=== PATIENT | female | born 1965 | race Caucasian/White ===

== ENCOUNTER 2016-04-06 15:45 | Emergency (ER) | payer OTHER ==
--- NOTE | 2016-04-06 16:42 | EDDOCDS ---
Nurse's Notes [facility] Name: Amberly De Souza Age: 50 yrs Sex: Female : 1965 Arrival Date: 04/06/2016 Time: 15:45 Bed Triage 3 Private MD: Melani DAVIDSON Diagnosis: Abscess of external ear Presentation: 04/06 15:51 Presenting complaint: Patient states: Left outer ear swelling and pain began four days mlb1 ago. Adult Sepsis Screening: The patient does not have new or worsening altered mentation. Patient's respiratory rate is less than 22. Systolic blood pressure is greater than 100. Patient has a qSOFA score of 0- Negative Sepsis Screen. Suicide/Homicide risk assessment- the patient denies having any suicidal and/or homicidal ideations and does not present with any other emotional, behavioral or mental health complaints. Status: Patient is not a extension service specialist in charge or dependent. Transition of care: patient was not received from another setting of care. 15:51 Acuity: HELLEN Level 4 mlb1 15:51 Method Of Arrival: Walkin/Carried/Asstd mlb1 Triage Assessment: 15:52 General: Appears in no apparent distress, Behavior is appropriate for age, cooperative. mlb1 Pain: Location: left ear Pain currently is 5 out of 10 on a pain scale. HIV screening NA for this visit Offered previously. 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 none - PMHx: GERD; - PSHx: Tonsillectomy; Cesearean Section; Laparoscopy; - Social history: Smoking status: Patient states was never smoker of tobacco. No barriers to communication noted, The patient speaks fluent Slovenian, Speaks appropriately for age. - Family history: Not pertinent. - : The pt / caregiver states he / she is not on anticoagulants. Home medication list is obtained from the patient. - Exposure Risk Screening:: None identified. Screenin:40 Screening information is obtained from the patient. Fall risk: No risks identified. mlb1 Assistance ADL's: requires no assistance with activities of daily living. Abuse/DV Screen: The patient / caregiver reports he/she is: not in a situation that causes fear, pain or injury. Nutritional screening: No deficits noted. Advance Directives: Currently, there is no health care proxy. home support is adequate. Assessment: 16:40 General: Appears in no apparent distress, comfortable, Behavior is appropriate for age, mlb1 cooperative. Pain: Location: left ear Pain currently is 5 out of 10 on a pain scale. EENT: Respiratory: No deficits noted. Derm: Skin is pink, warm & dry. normal. Vital Signs: 15:47 BP 148 / 85; Pulse 90; Resp 16; Temp 97.8(O); Pulse Ox 100% ; Weight 116.12 kg (M); cmb Height 5 ft. 5 in. (165.10 cm); Pain 4/10; 15:47 Body Mass Index 42.60 (116.12 kg, 165.10 cm) cmb Vitals: 15:47 Log In Time: April 06, 2016 at 15:45. cmb ED Course: 15:47 Patient visited by Elle Lewis. cmb 15:47 [facility] is Private Physician. cmb 15:47 Patient moved to Waiting cmb 15:48 Patient moved to Pre RCE cmb 15:52 Triage Initiated mlb1 15:54 Patient visited by Randall Mane, JOSE. mlb1 15:54 Patient moved to Triage 3 mlb1 16:07 [facility]. dk1 16:07 Nam Perez MD is Attending Physician. dk1 16:07 Patient visited by Gama Delacruz PA-C. dk1 16:41 No IV's were initiated during this patient's visit. No procedures done that require mlb1 assistance. 16:42 Patient visited by Randall Mane RN. mlb1 16:42 The patient / caregiver is instructed regarding the plan of care and ED course. mlb1 Order Results: There are currently no results for this order. Outcome: 16:23 Discharge ordered by Provider. dk1 16:41 Discharge Assessment: patient administered narcotics - no. The following High Risk mlb1 Discharge criteria are identified: None. Discharged to home ambulatory. Condition: good. Discharge instructions given to patient, Instructed on discharge instructions, follow up and referral plans. medication usage, Demonstrated understanding of instructions, medications, Pt was receptive of discharge instructions/ teaching. Prescriptions given X 3. No special radiology studies were completed. Property sent home with patient. 16:42 Patient left the ED. mlb1 Signatures: Randall Mane, RN RN mlb1 Gama Delacruz, JOSE R PAGilles roa1 Elle Lewis MTDD
--- NOTE | 2016-04-06 16:42 | EDDOCDS ---
Physician Documentation [facility] Name: Amberly De Souza Age: 50 yrs Sex: Female : 1965 Arrival Date: 04/06/2016 Time: 15:45 Bed Triage 3 Private MD: Melani DAVIDSON Disposition: 04/06/16 16:23 Discharged to Home/Self Care. Impression: Abscess of external ear. - Condition is Stable. - Discharge Instructions: Abscess. - Prescriptions for Bactroban 2 % Topical Ointment - Apply to affected area 1 application by TOPICAL route every 12 hours; 30 gram. Doxycycline Hyclate 100 mg Oral Tablet - take 1 tablet by ORAL route every 12 hours; 20 tablet. Tylenol 325 mg Oral Tablet - take 2 tablet by ORAL route every 6 hours as needed; 1 bottle. - Medication Reconciliation, Local Pharmacy Hours form. - Follow up: Emergency Department; When: 1 - 2 days; Reason: Recheck today's complaints. - Problem is new. - Symptoms are unchanged. Historical: - Allergies: Morphine; Codeine Sulfate; PENICILLINS; - Home Meds: 1. none - PMHx: GERD; - PSHx: Tonsillectomy; Cesearean Section; Laparoscopy; - Social history: Smoking status: Patient states was never smoker of tobacco. No barriers to communication noted, The patient speaks fluent Kuwaiti, Speaks appropriately for age. - Family history: Not pertinent. - : The pt / caregiver states he / she is not on anticoagulants. Home medication list is obtained from the patient. - Exposure Risk Screening:: None identified. 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 5 in. (165.10 cm); Pain 4/10; 15:47 Body Mass Index 42.60 (116.12 kg, 165.10 cm) cmb Signatures: Randall Mane RN RN mlb1 Gama Delacruz PA-C PA-C dk1 MTDD
--- NOTE | 2016-04-08 17:42 | EDDOCDS ---
Nurse's Notes [facility] Name: Amberly De Souza Age: 50 yrs Sex: Female : 1965 Arrival Date: 04/06/2016 Time: 15:45 Bed Triage 3 Private MD: Melani DAVIDSON Diagnosis: Abscess of external ear Presentation: 04/06 15:51 Presenting complaint: Patient states: Left outer ear swelling and pain began four days mlb1 ago. Adult Sepsis Screening: The patient does not have new or worsening altered mentation. Patient's respiratory rate is less than 22. Systolic blood pressure is greater than 100. Patient has a qSOFA score of 0- Negative Sepsis Screen. Suicide/Homicide risk assessment- the patient denies having any suicidal and/or homicidal ideations and does not present with any other emotional, behavioral or mental health complaints. Status: Patient is not a legal service specialist or dependent. Transition of care: patient was not received from another setting of care. 15:51 Acuity: HELLEN Level 4 mlb1 15:51 Method Of Arrival: Walkin/Carried/Asstd mlb1 Triage Assessment: 15:52 General: Appears in no apparent distress, Behavior is appropriate for age, cooperative. mlb1 Pain: Location: left ear Pain currently is 5 out of 10 on a pain scale. HIV screening NA for this visit Offered previously. 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 none - PMHx: GERD; - PSHx: Tonsillectomy; Cesearean Section; Laparoscopy; - Social history: Smoking status: Patient states was never smoker of tobacco. No barriers to communication noted, The patient speaks fluent Icelandic, Speaks appropriately for age. - Family history: Not pertinent. - : The pt / caregiver states he / she is not on anticoagulants. Home medication list is obtained from the patient. - Exposure Risk Screening:: None identified. Screenin:40 Screening information is obtained from the patient. Fall risk: No risks identified. mlb1 Assistance ADL's: requires no assistance with activities of daily living. Abuse/DV Screen: The patient / caregiver reports he/she is: not in a situation that causes fear, pain or injury. Nutritional screening: No deficits noted. Advance Directives: Currently, there is no health care proxy. home support is adequate. Assessment: 16:40 General: Appears in no apparent distress, comfortable, Behavior is appropriate for age, mlb1 cooperative. Pain: Location: left ear Pain currently is 5 out of 10 on a pain scale. EENT: Respiratory: No deficits noted. Derm: Skin is pink, warm & dry. normal. Vital Signs: 15:47 BP 148 / 85; Pulse 90; Resp 16; Temp 97.8(O); Pulse Ox 100% ; Weight 116.12 kg (M); cmb Height 5 ft. 5 in. (165.10 cm); Pain 4/10; 15:47 Body Mass Index 42.60 (116.12 kg, 165.10 cm) cmb Vitals: 15:47 Log In Time: April 06, 2016 at 15:45. cmb ED Course: 15:47 Patient visited by Elle Lewis. cmb 15:47 [facility] is Private Physician. cmb 15:47 Patient moved to Waiting cmb 15:48 Patient moved to Pre RCE cmb 15:52 Triage Initiated mlb1 15:54 Patient visited by Randall Mane, JOSE. mlb1 15:54 Patient moved to Triage 3 mlb1 16:07 G[facility] Delacruz [facility]-C [facility]. dk1 16:07 Nam Perez MD is Attending Physician. dk1 16:07 Patient visited by Gama Delacruz PA-C. dk1 16:41 No IV's were initiated during this patient's visit. No procedures done that require mlb1 assistance. 16:42 Patient visited by Randall Mane RN. mlb1 16:42 The patient / caregiver is instructed regarding the plan of care and ED course. [facility] 04/07 08:16 T-Sheet-- Draft Copy was scanned into Qianda[employer] and attached to record. [facility] Order Results: There are currently no results for this order. Outcome: 04/06 16:23 Discharge ordered by Provider. dk1 16:41 Discharge Assessment: patient administered narcotics - no. The following High Risk mlb1 Discharge criteria are identified: None. Discharged to home ambulatory. Condition: good. Discharge instructions given to patient, Instructed on discharge instructions, follow up and referral plans. medication usage, Demonstrated understanding of instructions, medications, Pt was receptive of discharge instructions/ teaching. Prescriptions given X 3. No special radiology studies were completed. Property sent home with patient. 16:42 Patient left the ED. mlb1 Signatures: Randall Mane RN RN mlb1 Gama Delacruz PA-C PA-C dk1 [place], [place] cmb Hoffert, Vi segura Chart Complete MTDD
--- NOTE | 2016-04-08 17:42 | EDDOCDS ---
Physician Documentation [facility] Name: Amberly De Souza Age: 50 yrs Sex: Female : 1965 Arrival Date: 04/06/2016 Time: 15:45 Bed Triage 3 Private MD: Melani DAVIDSON Disposition: 04/06/16 16:23 Discharged to Home/Self Care. Impression: Abscess of external ear. - Condition is Stable. - Discharge Instructions: Abscess. - Prescriptions for Bactroban 2 % Topical Ointment - Apply to affected area 1 application by TOPICAL route every 12 hours; 30 gram. Doxycycline Hyclate 100 mg Oral Tablet - take 1 tablet by ORAL route every 12 hours; 20 tablet. Tylenol 325 mg Oral Tablet - take 2 tablet by ORAL route every 6 hours as needed; 1 bottle. - Medication Reconciliation, Local Pharmacy Hours form. - Follow up: Emergency Department; When: 1 - 2 days; Reason: Recheck today's complaints. - Problem is new. - Symptoms are unchanged. Historical: - Allergies: Morphine; Codeine Sulfate; PENICILLINS; - Home Meds: 1. none - PMHx: GERD; - PSHx: Tonsillectomy; Cesearean Section; Laparoscopy; - Social history: Smoking status: Patient states was never smoker of tobacco. No barriers to communication noted, The patient speaks fluent Hungarian, Speaks appropriately for age. - Family history: Not pertinent. - : The pt / caregiver states he / she is not on anticoagulants. Home medication list is obtained from the patient. - Exposure Risk Screening:: None identified. 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 5 in. (165.10 cm); Pain 4/10; 15:47 Body Mass Index 42.60 (116.12 kg, 165.10 cm) cmb MDM: 04/07 08:16 T-Sheet-- Draft Copy was scanned into [employer] and attached to record. [facility] Signatures: Randall Mane RN RN mlb1 Gama Delacruz PA-C PA-C dk1 Hoffert, Sarah se The chart was reviewed and I authenticate all verbal orders and agree with the evaluation and treatment provided.Attachments: 08:16 T-Sheet-- Draft Copy imelda Chart Complete MTDD
--- NOTE | 2016-04-08 17:42 | EDDOCDS ---
Physician Documentation [facility] Name: Amberly De Souza Age: 50 yrs Sex: Female : 1965 Arrival Date: 04/06/2016 Time: 15:45 Bed Triage 3 Private MD: Melani DAVIDSON Disposition: 04/06/16 16:23 Discharged to Home/Self Care. Impression: Abscess of external ear. - Condition is Stable. - Discharge Instructions: Abscess. - Prescriptions for Bactroban 2 % Topical Ointment - Apply to affected area 1 application by TOPICAL route every 12 hours; 30 gram. Doxycycline Hyclate 100 mg Oral Tablet - take 1 tablet by ORAL route every 12 hours; 20 tablet. Tylenol 325 mg Oral Tablet - take 2 tablet by ORAL route every 6 hours as needed; 1 bottle. - Medication Reconciliation, Local Pharmacy Hours form. - Follow up: Emergency Department; When: 1 - 2 days; Reason: Recheck today's complaints. - Problem is new. - Symptoms are unchanged. Historical: - Allergies: Morphine; Codeine Sulfate; PENICILLINS; - Home Meds: 1. none - PMHx: GERD; - PSHx: Tonsillectomy; Cesearean Section; Laparoscopy; - Social history: Smoking status: Patient states was never smoker of tobacco. No barriers to communication noted, The patient speaks fluent Palauan, Speaks appropriately for age. - Family history: Not pertinent. - : The pt / caregiver states he / she is not on anticoagulants. Home medication list is obtained from the patient. - Exposure Risk Screening:: None identified. 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 5 in. (165.10 cm); Pain 4/10; 15:47 Body Mass Index 42.60 (116.12 kg, 165.10 cm) cmb MDM: 04/07 08:16 T-Sheet-- Draft Copy was scanned into [employer] and attached to record. [facility] Signatures: Randall Mane RN RN mlb1 Gama Delacruz PA-C PA-C dk1 Hoffert, Sarah se The chart was reviewed and I authenticate all verbal orders and agree with the evaluation and treatment provided.Attachments: 08:16 T-Sheet-- Draft Copy imelda Chart Complete MTDD
== END 2016-04-06 16:42 | disposition home or self-care (01) ==
LOC: M ED 15:45
DX: H60.02 Abscess of left external ear (principal); K21.9 Gastro-esophageal reflux disease without esophagitis; Z88.5 Allergy status to narcotic agent; Z88.0 Allergy status to penicillin

== ENCOUNTER 2016-10-16 03:48 | Emergency (ER) | payer OTHER ==
[~2016-10-16] VITALS: Ht 165.1 cm; Wt 111.0 kg
[2016-10-16] MEDS ORDERED: IBUP-1114 PO (03:58)
[2016-10-16] MEDS ORDERED: TUMS500C PO (03:58)
[2016-10-16] MEDS ORDERED: NAPROXEN 250 MG TAB PO ONE (05:30)
[2016-10-16] MEDS ORDERED: NAPR500T3 PO (05:32)
[2016-10-16 05:37] VITALS: BP 114/64
[2016-12-07] MEDS ORDERED: BACT800T5 PO (08:53)
[2016-12-07] MEDS ORDERED: MUPI2OI EXT (08:53)
== END 2016-10-16 05:40 | disposition home or self-care (01) ==
LOC: M ED 03:48
DX: M25.562 Pain in left knee (principal); K21.9 Gastro-esophageal reflux disease without esophagitis; Z88.5 Allergy status to narcotic agent; Z88.0 Allergy status to penicillin

== ENCOUNTER 2016-12-08 06:45 | Emergency (ER) | payer OTHER ==
[~2016-12-08] VITALS: Ht 165.1 cm; Wt 112.7 kg
[~2016-12-08 06:45] MED LIST: BACT800T5 PO; IBUP-1114 PO; MUPI2OI EXT; NAPR500T3 PO; TUMS500C PO
[2016-12-08] MEDS ORDERED: ACETAMINOPHEN TAB 650MG DOSE (2X325MG) PO ONE (07:15)
--- NOTE | 2016-12-08 07:23 | ED PDOC ---
Post-Departure Follow-Up Patient was seen yesterday for erythematous, tender area to the sacrum. Prescribed Bactrim DS and mupirocin ointment. Patient returns today stating that she was running a low grade temp this am of 99.3. States that she took two doses of Bactrim DS yesterday and one 200mg Advil at 6am. States that the area does not look worse, but thought she should return because of the low grade fever. Denies drainage from the area. Patient reports that she has used the mupirocin, but she also applied a warm compress to the area right after the ointment so it may have been wiped away. Denies history of abscesses in the past. No difficulty having a bowl movement. SANDRA MARK PA-C Dec 08, 2016 07:23
[2016-12-08 08:34] VITALS: BP 127/74
--- NOTE | 2016-12-08 14:31 | REP ---
Soft-tissue ultrasound in the sacral region. assess for abscess. Findings: Scanning over the red swollen area demonstrates a complex hypoechoic area casting some enhanced through transmission measuring 1.8 x 0.9 x 1.0 cm. No observable skin tract. This is consistent with a developing abscess. There is fairly superficial, 5 mm from the overlying skin. Signed by Live Mcgovern MD 12/08/2016 08:29 A
== END 2016-12-08 08:47 | disposition home or self-care (01) ==
LOC: M ED 06:45
DX: L03.317 Cellulitis of buttock (principal); Z79.899 Other long term (current) drug therapy; Z88.5 Allergy status to narcotic agent; Z88.0 Allergy status to penicillin

== ENCOUNTER 2018-04-23 23:18 | Emergency (ER) | payer OTHER ==
[~2018-04-23] VITALS: Ht 165.1 cm; Wt 127.5 kg
[~2018-04-23 23:18] MED LIST changes: +NAPR-885 PO; -NAPR500T3 PO
[2018-04-24 01:59] LABS: BASO % 0.4 % (0.0-1.0); EOS # 0.2 10^3/uL (0.0-0.50); EOS % 2.2 % (0.0-3.0); HEMOGLOBIN 13.1 g/dl (12.0-15.5); LYMPH # 1.9 10^3/uL (1.5-4.5); LYMPH % 22.7 % (24.0-44.0); MEAN CORPUSCULAR HEMOGLOBIN 27.8 pg (27.0-33.0); MEAN CORPUSCULAR HGB CONC 32.8 g/dl (32.0-36.5); MEAN CORPUSCULAR VOLUME 84.7 fl (80.0-96.0); MONO # 0.6 10^3/uL (0.0-0.8); MONO % 6.9 % (0.0-5.0); NEUTROPHILS # 5.8 10^3/uL (1.8-7.7); NEUTROPHILS % 67.4 % (36.0-66.0); PLATELET COUNT, AUTOMATED 302 10^3/uL (150-450); RED BLOOD COUNT 4.72 10^6/uL (4.00-5.40); WHITE BLOOD COUNT 8.6 10^3/uL (4.0-10.0)
--- NOTE | 2018-04-24 02:29 | REP ---
Clinical: Dizziness . Comparison: None . Technique: PA and lateral. Findings: The mediastinum and cardiac silhouette are normal. The lung mendoza are clear and without acute consolidation, effusion, or pneumothorax. The skeletal structures are intact and normal. Impression: 1. No acute cardiopulmonary process. Electronically Signed by Jaquan Carranza MD 04/24/2018 02:22 A
[2018-04-24 02:32] LABS: BLOOD UREA NITROGEN 22 MG/DL (7-18); CALCIUM LEVEL 8.3 MG/DL (8.5-10.1); CARBON DIOXIDE LEVEL 31 MEQ/L (21-32); CHLORIDE LEVEL 108 MEQ/L (98-107); CK-MB VALUE MASS < 1.0 NG/ML (<3.6); CPK CREATINE PHOSPHOKINASE 143 U/L (26-192); CREATININE FOR GFR 0.83 MG/DL (0.55-1.30); FREE T4 0.81 NG/DL (0.76-1.46); GLOMERULAR FILTRATION RATE > 60.0 (>51); GLUCOSE, FASTING 100 MG/DL (70-100); MAGNESIUM LEVEL 2.1 MG/DL (1.8-2.4); POTASSIUM SERUM 4.2 MEQ/L (3.5-5.1); SODIUM LEVEL 143 MEQ/L (136-145); TROPONIN I < 0.02 NG/ML (< 0.10)
[2018-04-24 03:10] VITALS: BP 140/92
--- NOTE | 2018-04-24 20:29 | ECGEPIP ---
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
== END 2018-04-24 03:11 | disposition home or self-care (01) ==
LOC: M ED 23:18
DX: R42 Dizziness and giddiness (principal); K21.9 Gastro-esophageal reflux disease without esophagitis; M19.90 Unspecified osteoarthritis, unspecified site; Z88.5 Allergy status to narcotic agent; Z88.0 Allergy status to penicillin; Z79.899 Other long term (current) drug therapy

== ENCOUNTER → 2019-04-17 | Outpatient (REF) | payer OTHER ==
[2019-04-17 21:53] LABS: APPEARANCE, URINE CLOUDY (CLEAR); BACTERIA, URINE AUTO 1+ (NEGATIVE); BILIRUBIN, URINE AUTO NEGATIVE (NEGATIVE); BLOOD, URINE BLOOD 3+ (NEGATIVE); COLOR, URINE YELLOW (YELLOW); GLUCOSE, URINE (UA) AUTO NEGATIVE (NEGATIVE); KETONE, URINE AUTO NEGATIVE (NEGATIVE); LEUKOCYTE ESTERASE, URINE AUTO NEGATIVE (NEGATIVE); NITRITE, URINE AUTO NEGATIVE (NEGATIVE); PROTEIN, URINE AUTO NEGATIVE (NEGATIVE); RBC, URINE AUTO 13 /HPF (0-3); SPECIFIC GRAVITY URINE AUTO 1.018 (1.002-1.035); SQUAMOUS EPITHELIAL CELL UR AU 2 /HPF (0-6); UROBILINOGEN, URINE AUTO 0.2 mg/dL (0.0-2.0); WBC, URINE AUTO 2 /HPF (0-3)
== END ==
LOC: M LAB REF 21:38
PROVIDERS: ATTEND Physician Assistant Medical
DX: R31.9 Hematuria, unspecified (principal)

== ENCOUNTER → 2019-09-20 | Outpatient (REF) | payer OTHER | LOC: M LAB REF 08:44 | PROVIDERS: ATTEND Physician Assistant Medical | DX: Z11.59 Encounter for screening for other viral diseases (principal) ==

== ENCOUNTER → 2020-01-18 | Outpatient (CLI) | payer SELFPAY | LOC: M LABSMTC 14:25 | PROVIDERS: ATTEND Pediatrics | DX: Z11.59 Encounter for screening for other viral diseases (principal) ==

== ENCOUNTER → 2020-09-06 | Outpatient (CLI) | payer OTHER ==
[2020-09-06 18:13] LABS: HEMATOCRIT 39.9 % (36.0-47.0); MEAN CORPUSCULAR HEMOGLOBIN 27.9 pg (27.0-33.0); MEAN CORPUSCULAR HGB CONC 32.6 g/dl (32.0-36.5); MEAN CORPUSCULAR VOLUME 85.6 fl (80.0-96.0); PLATELET COUNT, AUTOMATED 327 10^3/uL (150-450); RED BLOOD COUNT 4.66 10^6/uL (4.00-5.40); WHITE BLOOD COUNT 7.3 10^3/uL (4.0-10.0)
[2020-09-06 18:37] LABS: ALBUMIN 3.5 GM/DL (3.2-5.2); ALT/SGPT 33 U/L (12-78); AMYLASE 44 U/L (25-115); BILIRUBIN,TOTAL 0.2 MG/DL (0.2-1.0); BLOOD UREA NITROGEN 14 MG/DL (7-18); CALCIUM LEVEL 8.8 MG/DL (8.5-10.1); CARBON DIOXIDE LEVEL 34 MEQ/L (21-32); CHLORIDE LEVEL 104 MEQ/L (98-107); CREATININE FOR GFR 0.72 MG/DL (0.55-1.30); GLOMERULAR FILTRATION RATE > 60.0 (>51); GLUCOSE, FASTING 87 MG/DL (70-100); LIPASE 104 U/L (73-393); POTASSIUM SERUM 4.2 MEQ/L (3.5-5.1); SODIUM LEVEL 139 MEQ/L (136-145); TOTAL PROTEIN 6.6 GM/DL (6.4-8.2)
[2020-09-06 19:28] LABS: % LABILE ALKALINE PHOSPHATASE 44.19 %; LABILE ALKPHOS 19 U/L; STABLE ALKPHOS 24 U/L
== END ==
LOC: M LAB 17:01
PROVIDERS: ATTEND Family Medicine
DX: K80.80 Other cholelithiasis without obstruction (principal)

== ENCOUNTER → 2020-09-07 | Outpatient (CLI) | payer OTHER ==
--- NOTE | 2020-09-11 15:13 | REP ---
INDICATION: SE SCR MAMMO. COMPARISON: Multiple the latest 11/23/2014. TECHNIQUE: Digital screening mammography was carried out bilaterally in the CC and MLO projections using both 2D and 3D modalities and compared to the prior exams. By history, the patient has no complaints of a palpable breast abnormality or other significant breast complaints. There are no prior DBT images to review. FINDINGS: The breasts are unchanged in size and shape. Stable benign calcifications are seen bilaterally. In the upper outer quadrant of the left breast there is a potential neno asymmetric density with possible internal architectural distortion. There is no skin thickening or nipple retraction. No other suspicious features are seen in either breast. IMPRESSION: BIRADS/ACR category 0 mammogram. Potential left breast finding as described above and for which diagnostic digital spot compression views are recommended in the CC and MLO projections. The spot compression views should be obtained using DBT technique. Ultrasonography might also be indicated. This patient's Tyrer-Cuzick lifetime breast cancer risk assessment score is 9.1%. This mammogram was interpreted with the aid of an FDA-approved computer-aided detection system. The patient states she had a clinical breast exam in June 2020. The patient letter being requested is M0 RECOMMENDATION: As above <Electronically signed by Brayan Dudley > 09/11/20 [id number]
== END ==
LOC: M WHC 12:17
PROVIDERS: ATTEND Family Medicine
DX: Z12.31 Encounter for screening mammogram for malignant neoplasm of breast (principal)

== ENCOUNTER → 2020-09-22 | Outpatient (CLI) | payer OTHER ==
--- NOTE | 2020-09-22 16:24 | REP ---
INDICATION: LEFT BREAST ADD VIEWS. COMPARISON: Comparison mammography is from September 07, 2020, November 23, 2014, and May 17, 2011. TECHNIQUE: Focal spot-compression CC, mL, and MLO views were obtained with 3D tomography. Targeted left breast sonography is carried. This mammogram was interpreted with the aid of an FDA-approved computer-aided detection system. FINDINGS: Heterogeneously dense fibroglandular tissue is seen. Focal spot compression and tomographic views confirm the presence of a focal area of architectural distortion in the upper-outer quadrant of the left breast. There is associated soft tissue density less than 1 cm in diameter. No microcalcification is seen. There is some spiculation. Mammographic findings are suspicious. The Volpara volumetric breast density pattern is C. Targeted ultrasound: Targeted left breast sonography is performed. Heterogeneous fibroglandular background echotexture is seen. In the 2 o'clock position, 10 cm from the nipple, there is a 1.0 x 1.0 x 1.7 cm hypoechoic nodule with irregular spiculated borders. This is felt to correspond with the mammographic opacity. It has high shear wave elastography number, 91 K PA, and is considered suspicious. IMPRESSION: BIRADS/ACR category 4 suspicious left breast mammographic and sonographic findings. This patient's Tyrer-Cuzick lifetime breast cancer risk assessment score is 9.1%. RECOMMENDATION: Ultrasound-guided needle biopsy of the hypoechoic lesion in the left breast with clip placement and post marker clip placement left breast mammography recommended.. The patient letter being requested is M4 dense. <Electronically signed by Mo Mcgovern > 09/22/20 [id number]
== END ==
LOC: M WHC 14:49
PROVIDERS: ATTEND Family Medicine
DX: N63.20 Unspecified lump in the left breast, unspecified quadrant (principal)
CPT/HCPCS: 76642; 77065; G0279

== ENCOUNTER → 2020-10-18 | Outpatient (CLI) | payer OTHER ==
[~2020-10-18] MED LIST changes: +VITMTA PO
[2020-10-18 15:26] VITALS: BP 130/74
--- NOTE | 2020-10-21 23:21 | ROOPDOC ---
[facility] Report Of Operation Report of Operation DATE OF PROCEDURE: 10/18/20 DIAGNOSIS: left breast suspicious lesion PROCEDURE: ultrasound guided biopsy of the left breast suspicious lesion with clip placement SURGEON: Caryn Johnston BLOOD LOSS: minimal COMPLICATIONS: none Lidocaine 1% LOT [id number] Expiration 04/2024 Sodium Bicarbonate 8.4% LOT [id number] Expiration 03/2021 Hydromark clip LOT [id number] Expiration 01/2023 SHAPE: 4 Bx device: BARD [id number] x10 cm LOT [id number] Expiration 07/2023 Informed consent was obtained. The most common risk and possible complications including bleeding, hematoma, bruising, infection, injury to surrounding structures were explained to the patient and the patient expressed understanding. Patient was placed on the bed in the supine position. Appropriate time out was done stating patients name, date of , and the procedure to be performed. The left breast was prepped and draped in the usual fashion. The ultrasound was used to confirm the location of the lesion in the left breast at 2:00 8 centimeters from the nipple. Plain Lidocaine 1% and 8.4% sodium bicarbonate 10:1 mix was used to anesthetize the skin, the biopsy site and tissues along the anticipated biopsy tract. Small skin incision was made with blade number 11. BARD Marquee 14G cannula with introducer ([id number]) was inserted through the incision and advanced under the ultrasound guidance to position immediately adjacent to the lesion. Next, the introducer was removed and BARD Marquee 14G biopsy device was places in the cannula. Pre-biopsy imaging, and post-biopsy imaging were captured. Five good core biopsies were taken at various levels of the lesion. Specimen was placed in formaldehyde, labeled with appropriate biopsy site and patients name, and sent to pathology for evaluation. Next, the biopsy device was withdrawn and a clip introducer was inserted into the biopsy site via the cannula. SHAPE 4 Hydromark clip was deployed under sonographic guidance. Post-clip placement image was captured. Manual pressure over the biopsy cavity and tract was held after the clip introducer was withdrawn. No bleeding was noted upon removal of the pressure. Post-biopsy mammogram of the left breast was obtained and showed clip in expected position. Postprocedural dressing was placed. Patient tolerated procedure well. Discharge instructions were discussed with the patient and the patient expressed understanding. CARYN JOHNSTON DO Oct 21, 2020 23:21
== END ==
LOC: M WHCPRO 11:17
PROVIDERS: ATTEND Surgery
DX: C50.212 Malignant neoplasm of upper-inner quadrant of left female breast (principal); N63.22 Unspecified lump in the left breast, upper inner quadrant
CPT/HCPCS: 19083; 77065; 88305; G0279

== ENCOUNTER → 2020-10-25 | Outpatient (CLI) | payer OTHER ==
[2020-10-25 15:47] LABS: BLOOD UREA NITROGEN 14 MG/DL (7-18); CALCIUM LEVEL 8.9 MG/DL (8.5-10.1); CARBON DIOXIDE LEVEL 28 MEQ/L (21-32); CHLORIDE LEVEL 106 MEQ/L (98-107); CREATININE FOR GFR 0.69 MG/DL (0.55-1.30); GLOMERULAR FILTRATION RATE > 60.0 (>51); GLUCOSE, FASTING 106 MG/DL (70-100); POTASSIUM SERUM 3.9 MEQ/L (3.5-5.1); SODIUM LEVEL 139 MEQ/L (136-145)
== END ==
LOC: M PLALAB 13:00
PROVIDERS: ATTEND Surgery
DX: C50.919 Malignant neoplasm of unspecified site of unspecified female breast (principal)

== ENCOUNTER → 2020-11-03 | Outpatient (CLI) | payer OTHER ==
[~2020-11-03] MED LIST changes: +PROHANCE 279.3MG/ML 15ML VIAL As Ordered ONE; +PROHANCE 279.3MG/ML 5ML VIAL As Ordered ONE
--- NOTE | 2020-11-06 08:04 | REP ---
INDICATION: INVASIVE DUCTAL CARCINOMA OR LT BREAST. COMPARISON: Comparison is made with mammography from September 07, 2020 and September 22, 2020 as well as sonography from September 22, 2020. Patient is a post ultrasound-guided needle biopsy of the left breast on October 18, 2020. TECHNIQUE: Three [facility] MRI imaging was performed with a dedicated breast coil. Axial, coronal, and sagittal T1 and T2 weighted scans were obtained with and without fat saturation in the usual fashion. The study includes dynamically acquired post gadolinium-enhanced imaging with image subtraction. Maximum intensity projection and multi planar reformation imaging is included as well. This study is interpreted with the aid of [employer], an FDA approved computer aided detection (CAD) software program, on a dedicated breast MRI workstation. The gadolinium enhancement dose is 20 mL of intravenous ProHance. FINDINGS: There is a moderate amount of fibroglandular tissue bilaterally corresponding with the mammographic pattern. There is amoderate nodular pattern of background parenchymal enhancement. In the left breast at the 1 o'clock position middle to posterior 3rd, there is a spiculated heterogeneously enhancing lesion adjacent to a HydroMARK clip device. This corresponds to the biopsy proven malignancy. Its dimensions are by MRI are somewhat larger than by ultrasound and mammography. Its MRI dimensions are 2.0 x 0.9 x 2.0 cm, calculated volume 1.6 mL. It demonstrates rapid enhancement and predominantly continuous and plateau pattern kinetics. There is no enlarged lymph node in the left axilla. There are 2 or 3 lymph nodes grouped together somewhat anteriorly and medially which appear asymmetric although they are normal in size. These are equivocal. No suspicious morphologic abnormality is seen in the right breast or elsewhere in the left breast. 4 no other suspicious area of enhancement and washout is seen on dynamically acquired post contrast images. IMPRESSION: BI-RADS category 6 known left breast malignancy. Bilateral breast MRI findings. There are 2 to 3 asymmetric lymph nodes in the left axilla not enlarged. No other suspicious finding. <Electronically signed by Mo Mcgovern > 11/06/20 0800
== END ==
LOC: M RAD 15:21
PROVIDERS: ATTEND Surgery
DX: C50.919 Malignant neoplasm of unspecified site of unspecified female breast (principal)
CPT/HCPCS: A9576; C8908

== ENCOUNTER → 2020-11-08 | Outpatient (CLI) | payer OTHER ==
[~2020-11-08] MED LIST changes: -PROHANCE 279.3MG/ML 15ML VIAL As Ordered ONE; -PROHANCE 279.3MG/ML 5ML VIAL As Ordered ONE
--- NOTE | 2020-11-08 15:14 | REP ---
INDICATION: 2ND LOOK IMAGES, ABNORMAL MRI. Biopsy-proven left breast malignancy. Slightly asymmetric nonenlarged lymph nodes left axilla. COMPARISON: Comparison breast MRI findings November 03, 2020. Comparison breast sonography September 22, 2020. Comparison mammography September 07, 2020 and September 22, 2020. TECHNIQUE: Left axillary targeted second-look sonography. FINDINGS: Left axillary sonography is performed at direction. There are 4 identified lymph nodes, 2 of these are in the medial left axilla. These are benign in appearance without significant cortical thickening or hypertrophy features. These measure 1.3 x 0.7 by 1.0 cm and 1.0 x 0.9 by 1.1 cm respectively. In the more lateral axilla there is a node measuring 1.0 x 0.5 by 0.8 cm which also has a sonographically benign appearance. There is a 1.6 by 1.2 by 0.7 cm normal appearing lymph node as well in the left axilla. IMPRESSION: Normal appearing axillary lymph nodes. No suspicious features by sonography. <Electronically signed by Mo Mcgovern > 11/08/20 [id number]
== END ==
LOC: M RAD 13:22
PROVIDERS: ATTEND Surgery
DX: R92.8 Other abnormal and inconclusive findings on diagnostic imaging of breast (principal)

== ENCOUNTER 2020-11-23 08:27 | Day surgery (SDC) | payer OTHER ==
[~2020-11-23] VITALS: Ht 165.1 cm; Wt 109.8 kg
--- OUTSIDE RECORDS SUMMARY | 2020-11-23 08:32 | CCD ---
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 Role Phone Michelle Esquivel Unavailable PROBLEMS Type Condition ICD9-CM Code [id number] Code Onset Dates Condition S tatus W/U Status Risk SNOMED Code Notes Problem Abnormal mammogram R92.8 Active confirmed 1 01869488 Problem Abnormal mammogram of left breast R92.8 Active confirmed 072042192 ALLERGIES Allergen (clinical drug ingredient) Drug/Non Drug Allergy do cumented on EMR Reaction Allergy Type Onset Date Status Latex Latex Rash Drug Allergy Active morphine Morphine Rash Drug Allergy Active codeine Codeine Rash Drug Allergy Active penicillin V Penicillin Rash Drug Allergy Active ENCOUNTERS from 1967 to 2020-10-19 Encounter Location Date Provider Diagnosis [facility] [address] [place] [address] [place] [address] Oct, Michelle Esquivel IMMUNIZATIONS No Information SOCIAL HISTORY Tobacco Use: Social History Observation Description Date Details (start date - stop date) Never Smoker Sex Assigned At : Social History Observation Description Sex Assigned At Unknown Tobacco Use: Question Answer Notes Are you a: never smoker REASON FOR REFERRAL No Information VITAL SIGNS No information MEDICATIONS Medication SIG (Take, Route, Frequency, Duration) Notes Start Da te End Date Status Tylenol 325 MG 1 tablet as needed Orally every 4 hrs prn Active Multivitamin - 1 tablet Orally Once a day Active Advil 200 MG 1 tablet with food or milk as needed Orally Thre e times a day prn Active PROCEDURES No Information RESULTS No Results REASON FOR VISIT 1d post bx MEDICAL (GENERAL) HISTORY Type Description Date Medical History headaches Medical History gall stones Medical History endometriosis Medical History fatigue Medical History Right foot/ankle pain Surgical History 1994 Surgical History laparoscopy Surgical History tonsils removed Goals Section No Information Health Concerns No Information MEDICAL EQUIPMENT No Information MENTAL STATUS No Information FUNCTIONAL STATUS No Information ASSESSMENTS No Information PLAN OF TREATMENT Next Appt Details Provider Name:Michelle Esquivel, 20 -- 04:30:00 PM, [address] [place] [address], [place], [place], [facility], Insurance Providers Payer Name Payer Address Payer Phone Insured Name Patient Relati onship to Insured Coverage Start Date Coverage End Date [facility] [id number] [facility] [id number] [place]
--- OUTSIDE RECORDS SUMMARY | 2020-11-23 08:32 | CCD ---
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 Role Phone Michelle Esquivel Unavailable PROBLEMS Type Condition ICD9-CM Code [id number] Code Onset Dates Condition S tatus W/U Status Risk SNOMED Code Notes Problem Abnormal mammogram R92.8 Active confirmed 1 [id number] Problem Abnormal mammogram of left breast R92.8 Active confirmed [id number] ALLERGIES Allergen (clinical drug ingredient) Drug/Non Drug Allergy do cumented on EMR Reaction Allergy Type Onset Date Status Latex Latex Rash Drug Allergy Active morphine Morphine Rash Drug Allergy Active codeine Codeine Rash Drug Allergy Active penicillin V Penicillin Rash Drug Allergy Active ENCOUNTERS from 1967 to 2020-10-18 Encounter Location Date Provider Diagnosis [facility] Breast [facility] [address] [place] [address] [place] [address] 08 Oct, 2020 Michelle Esquivel IMMUNIZATIONS No Information SOCIAL HISTORY [...] Information RESULTS No Results REASON FOR VISIT GEN SURG - [facility] (GENERAL) HISTORY Type Description Date Medical [...] Next Appt Details Provider Name:Michelle Esquivel, 20 -09- 04:30:00 PM, [address] [place] [address], [place], [place], [facility], Insurance Providers Payer Name Payer Address Payer Phone Insured Name Patient Relati onship to Insured Coverage Start Date Coverage End Date [facility] [address] [place] [id number] ALESSANDRO [place]ZA
--- OUTSIDE RECORDS SUMMARY | 2020-11-23 08:32 | CCD ---
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 Name Role Phone Jordana PRINCE MD Unavailable Unavailable Jordana PRINCE MD Unavailable Unavailable Jordana PRINCE MD Unavailable Unavailable Jordana PRINCE MD Unavailable Unavailable Jordana PRINCE MD Unavailable Unavailable Jordana PRINCE MD Unavailable Unavailable Jordana PRINCE MD Unavailable Unavailable Jordana PRINCE MD Unavailable Unavailable Jordana PRINCE MD Unavailable Unavailable Jordana PRINCE MD Unavailable Unavailable Jordana PRINCE MD Unavailable Unavailable Jordana PRINCE MD Unavailable Unavailable Jordana PRINCE MD Unavailable Unavailable Jordana PRINCE MD Unavailable Unavailable Jordana PRINCE MD Unavailable Unavailable Jordana PRINCE MD Unavailable Unavailable Jordana PRINCE MD Unavailable Unavailable Jordana PRINCE MD Unavailable Unavailable Jordana PRINCE MD Unavailable Unavailable Jordana PRINCE MD Unavailable Unavailable Jordana PRINCE MD Unavailable Unavailable Jordana PRINCE MD Unavailable Unavailable Jordana PRINCE MD Unavailable Unavailable Jordana PRINCE MD Unavailable Unavailable Jordana PRINCE MD Unavailable Unavailable Jordana PRINCE MD Unavailable Unavailable Jordana PRINCE MD Unavailable Unavailable Jordana PRINCE MD Unavailable Unavailable Jordana PRINCE MD Unavailable Unavailable Jordana PRINCE MD Unavailable Unavailable Jordana PRINCE MD Unavailable Unavailable Jordana PRINCE MD Unavailable Unavailable Jordana PRINCE MD Unavailable Unavailable Jordana PRINCE MD Unavailable Unavailable Jordana PRINCE MD Unavailable Unavailable Jordana PRINCE MD Unavailable Unavailable Jordana PRINCE MD Unavailable Unavailable Jordana PRINCE MD Unavailable Unavailable Jordana PRINCE MD Unavailable Unavailable Jordana PRINCE MD Unavailable Unavailable DOMBROWSKA, K CARYN DO Unavailable Unavailable DOMBROWSKA, K CARYN DO Unavailable Unavailable DOMBROWSKA, K CARYN DO Unavailable Unavailable DOMBROWSKA, K CARYN DO Unavailable Unavailable DOMBROWSKA, K CARYN DO Unavailable Unavailable DOMBROWSKA, K CARYN DO Unavailable Unavailable DOMBROWSKA, K CARYN DO Unavailable Unavailable DOMBROWSKA, K CARYN DO Unavailable Unavailable DOMBROWSKA, K CARYN DO Unavailable Unavailable DOMBROWSKA, K CARYN DO Unavailable Unavailable DOMBROWSKA, K CARYN DO Unavailable Unavailable DOMBROWSKA, K CARYN DO Unavailable Unavailable DOMBROWSKA, K CARYN DO Unavailable Unavailable DOMBROWSKA, K CARYN DO Unavailable Unavailable DOMBROWSKA, K CARYN DO Unavailable Unavailable DOMBROWSKA, K CARYN DO Unavailable Unavailable DOMBROWSKA, K CARYN DO Unavailable Unavailable DOMBROWSKA, K CARYN DO Unavailable Unavailable DOMBROWSKA, K CARYN DO Unavailable Unavailable DOMBROWSKA, K CARYN DO Unavailable Unavailable DOMBROWSKA, K CARYN DO Unavailable Unavailable DOMBROWSKA, K CARYN DO Unavailable Unavailable Pato GONZALEZ MD Unavailable Unavailable Pato GONZALEZ MD Unavailable Unavailable Pato GONZALEZ MD Unavailable Unavailable Pato GONZALEZ MD Unavailable Unavailable Pato GONZALEZ MD Unavailable Unavailable Pato GONZALEZ MD Unavailable Unavailable Pato GONZALEZ MD Unavailable Unavailable Pato GONZALEZ MD Unavailable Unavailable Pato GONZALEZ MD Unavailable Unavailable Pato GONZALEZ MD Unavailable Unavailable Pato GONZALEZ MD Unavailable Unavailable Pato GONZALEZ MD Unavailable Unavailable Pato GONZALEZ MD Unavailable Unavailable Pato GONZALEZ MD Unavailable Unavailable Pato GONZALEZ MD Unavailable Unavailable Pato GONZALEZ MD Unavailable Unavailable Carlos, Rudy Malloy MD Unavailable Unavailable Carlos, F Gama JUSTICE Unavailable Unavailable Carlos, F Gama JUSTICE Unavailable Unavailable Carlos, F Gama JUSTICE Unavailable Unavailable Carlos, F Gama JUSTICE Unavailable Unavailable Carlos, F Gama MD Unavailable Unavailable Carlos, F Gama MD Unavailable Unavailable Carlos, F Gama JUSTICE Unavailable Unavailable Carlos, F Gama MD Unavailable Unavailable Carlos, F Gama MD Unavailable Unavailable Carlos, F Gama JUSTICE Unavailable Unavailable Carlos, F Gama MD Unavailable Unavailable Carlos, F Gama MD Unavailable Unavailable Carlos, F Gama MD Unavailable Unavailable Carlos, F Gama MD Unavailable Unavailable Carlos, F Gama MD Unavailable Unavailable Carlos, F Gama MD Unavailable Unavailable Carlos, F Gama MD Unavailable Unavailable Carlos, F Gama MD Unavailable Unavailable Carlos, F Gama MD Unavailable Unavailable Carlos, F Gama MD Unavailable Unavailable Carlos, F Gama MD Unavailable Unavailable Carlos, F Gama MD Unavailable Unavailable Carlos, F Gama MD Unavailable Unavailable Carlos, F Gama MD Unavailable Unavailable Carlos, F Gama MD Unavailable Unavailable Carlos, F Gama MD Unavailable Unavailable Carlos, F Gama MD Unavailable Unavailable Carlos, F Gama MD Unavailable Unavailable Carlos, F Gama MD Unavailable Unavailable Carlos, F Gama MD Unavailable Unavailable Carlos, F Gama MD Unavailable Unavailable Carlos, F Gama MD Unavailable Unavailable Carlos, F Gama JUSTICE Unavailable Unavailable Carlos, F Gama MD Unavailable Unavailable Carlos, F Gama MD Unavailable Unavailable Carlos, F Gama MD Unavailable Unavailable Carlos, F Gama MD Unavailable Unavailable Carlos, F Gama MD Unavailable Unavailable Cralos, F Gama MD Unavailable Unavailable Carlos, F Gama MD Unavailable Unavailable Carlos, F Gama JUSTICE Unavailable Unavailable NON, PHYSICIAN STAFF Unavailable Unavailable Re-disclosure Warning The records that you are about to access may contain information from federally-assisted alcohol or drug abuse programs. If such information is present, then the following federally mandated warning applies: This information has been disclosed to you from records protected by federal confidentiality rules (42 CFR part 2). The federal rules prohibit you from making any further disclosure of this information unless further disclosure is expressly permitted by the written consent of the person to whom it pertains or as otherwise permitted by 42 CFR part 2. A general authorization for the release of medical or other information is NOT sufficient for this purpose. The Federal rules restrict any use of the information to criminally investigate or prosecute any alcohol or drug abuse patient.The records that you are about to access may contain highly sensitive health information, the redisclosure of which is protected by Article 27-F of the [facility] Public Health law. If you continue you may have access to information: Regarding HIV / AIDS; Provided by facilities licensed or operated by the [facility] Office of Mental Health; or Provided by the [facility] Office for People With Developmental Disabilities. If such information is present, then the following [facility] mandated warning applies: This information has been disclosed to you from confidential records which are protected by state law. State law prohibits you from making any further disclosure of this information without the specific written consent of the person to whom it pertains, or as otherwise permitted by law. Any unauthorized further disclosure in violation of state law may result in a fine or mcc sentence or both. A general authorization for the release of medical or other information is NOT sufficient authorization for further disc losure. Allergies and Adverse Reactions Type Description Substance Reaction Status Data Source(s ) No Known Environmental Allergies No Known Environmental Al lergies [facility] No Known Food Allergies No Known Food Allergies [facility] Propensity to adverse reactions PENICILLIN PENICILLIN RASH [facility] Drug allergy MORPHINE MORPHINE RASH [facility] Drug allergy CODEINE CODEINE RASH [facility] Family History Family Member Name Family Member Gender Family Member Status Date o f Status Description Data Source(s) Unknown Male Problem MEDENT ([facility], ) () Encounters Encounter Providers Location Date Indications Data Source(s ) [place] [address] [facility] [address] 11/20/2020 12:00:00 AM EDT eCW1 ([facility]) Outpatient Attender: NADINE GONZALEZ MDConsultant: STAFF NON 11/14/2020 08:00:00 AM EDT - 11/15/2020 10:50:[address] [facility] Patient discharged. Unknown [address] [facility] [address] 11/02/2020 12:00:00 AM EDT eCW1 ([facility]) Outpatient Attender: NADINE GONZALEZ MDConsultant: STAFF NON 11/01/2020 10:13:34 AM EDT - 11/13/2020 11:31:[address] [facility] Patient discharged. Unknown [address] [facility] [address] 11/01/2020 12:00:00 AM EDT eCW1 ([facility]) Outpatient [address] [facility] [address] 10/23/2020 12:00:00 AM EDT eCW1 ([facility]) Outpatient Admitter: CARYN Bowerser: LIONELNAHUM KIERA JOHNSTON DO 10/20/2020 12:00:00 AM EDT Malignant neoplasm of unspecified site o f unspecified female breast [facility] Malignant neoplasm of unspecified site o f unspecified female breast Unknown [address] [facility] [address] 10/19/2020 12:00:00 AM EDT eCW1 ([facility]) (BC Biopsy) Breast Center Biopsy [address] [place] [address] 10/18/2020 12:00:00 AM EDT eCW1 ([facility]) Unknown [address] [facility] [address] 10/18/2020 12:00:00 AM EDT eCW1 ([facility]) Outpatient Attender: Gama Gonzalez MD 2020 02:54:00 PM EDT - 10/06/2020 02:54:00 PM EDT [facility] Outpatient [address] [facility] [address] 10/04/2020 12:00:00 AM EDT eCW1 ([facility]) Outpatient Attender: YOUSIF PRINCE MD 07/11/2020 10:3 4:00 AM EDT HEADACHES, FM HX OF BRAIN CANCER [facility] HEADACHES, FM HX OF BRAIN CANCER Immunizations Vaccine Date Status Description Data Source(s) COVID-19 VACCINE Pfizer 05/18/2020 12:00:00 AM EDT completed [facility] Vaccine Series Complete: YESThis Data wa s Submitted to [facility] Via [employer]. COVID-19 VACCINE Pfizer 04/27/2020 12:00:00 AM EDT completed [facility] Vaccine Series Complete: NOThis Data was Submitted to [facility] Via [employer]. INFLUENZA VIRUS VACCINE QUADRIVAL [phone](6 MOS AND UP)/PF 11/21/2019 12:00:00 AM EDT completed [facility] Medications Medication Brand Name Start Date Product Form Dose Route Admi nistrative Instructions Pharmacy Instructions Status Indications Reaction Description Data Source(s) Lidocaine 25 MG/ML / Prilocaine 25 MG/ML Topical Cream Lidocaine-Prilocaine 2.5- 2.5 % Lidocaine-Prilocaine 2.5-2.5 % 11/06/2020 12:00:00 AM EDT active Lidocaine-Prilocaine 2.5-2.5 % e CW1 ([facility]) 2.5-2.5 % 11/06/2020 12:00:00 AM EDT cream 30 APPLY ENTIRE TUBE TO LEFT NIPPLE AND SURROUNDING TISSUE TOPICALLY 2 HOURS PRIOR TO COMING TO HOSPITAL FOR SURGERY. COVER WITH PLASTIC EXTERNALLY APPLY ENTIRE TUBE TO LEFT NIPPLE AND SURROUNDING TISSUE TOPICALLY 2 HOURS PRIOR TO COMING TO HOSPITAL FOR SURGERY. COVER WITH PLASTIC EXTERNALLY SOLD: 11/08/2020 [facility] Lidocaine 25 MG/ML / Prilocaine 25 MG/ML Topical Cream Lidocaine-Prilocaine 2.5- 2.5 % Lidocaine-Prilocaine 2.5-2.5 % 11/06/2020 12:00:00 AM EDT active Lidocaine-Prilocaine 2.5-2.5 % e CW1 ([facility]) 137 mcg (0.1 %) 12/14/2019 12:00:00 AM EST aerosol,spray 30 SPRAY 1-2 SPRAYS IN EACH NOSTRIL TWICE A DAY FOR 10 DAYS SPRAY 1-2 SPRAYS IN EACH NOSTRIL TWICE A DAY FOR 10 DAYS SOLD: 12/14/2019 [facility] 50 mcg/actuation 12/14/2019 12:00:00 AM EST spray,suspension 16 SPRAY 2 SPRAYS IN EACH NOSTRIL ONCE A DAY SPRAY 2 SPRAYS IN EACH NOSTRIL ONCE A DAY SOLD: 12/14/2019 [facility] Insurance Providers Payer name Policy type / Coverage type Policy ID Covered democrat ID Covered democrat's relationship to white Policy White Plan Information SANDY U [id number] Self [id number] [facility] [place] [id number] 01 [id number] [facility] [place] [id number] 01 [id number] [facility] [id number] 2 [id number] SELF PAY ONLY [id number] SP [id number] [facility] [id number] [facility] Health Maintenance Organization (HMO) [id number] Family Dependent [id number] [facility] Health Maintenance Organization (HMO) [id number] Family Dependent [id number] [facility]/ AD O [id number] P [id number] [facility] P [id number] S [id number] [facility] INSURANCE FUND [id number] SP [id number] [facility] [id number] [id number] Problems, Conditions, and Diagnoses Code Display Name Description Problem Type Effective Dates Data Source(s) I9589 Other hypotension Other hypotension Diagnosis 11/14/2020 08:00:00 AM [facility] K8010 Calculus of gallbladder with chronic cho lecystitis without obstruction Calculus of gallbladder with chronic cholecystitis without obstruction Diagnosis 11/14/2020 08:00:00 AM EDT [facility] [id number] Encounter for other preprocedural examin ation Encounter for other preprocedural examination Diagnosis 11/13/2020 10:30:00 AM T [facility] C50.919 Malignant neoplasm of unspecified site o f unspecified female breast Malignant neoplasm of unspecified site of unspecified female breast Diagnosis 10/20/2020 01:34:00 PM [facility] Z800 Family history of malignant neoplasm of digestive organs Family history of malignant neoplasm of digestive organs Diagnosis 10/06/2020 02:54:00 P M EDT [facility] D4860 Neoplasm of uncertain behavior of unspec ified breast Neoplasm of uncertain behavior of unspecified breast Diagnosis 10/06/2020 02:54:00 PM EDT [facility] C50.912 [id number] Malignant neoplasm of unspecifie d site of left female breast Problem 11/06/2020 12:00:00 AM EDT [facility] ([facility]) C50.919 [id number] Invasive ductal carcinoma of breast Probl em 10/23/2020 12:00:00 AM EDT [facility] ([facility]) R92.8 [id number] Abnormal mammogram of left breast Problem 10/04/2020 12:00:00 AM EDT [facility] ([facility]) R92.8 [id number] Abnormal mammogram Problem 09/29/2020 12:00: 00 AM EDT [facility] ([facility]) Surgeries/Procedures No Information Results ID Date Data Source [id number] 11/14/2020 06:40:00 PM EDT [facility] Name Value Range Interpretation Code Description Data Pennie rce(s) Supporting Document(s) CBC NO DIFF [facility] COMPLETE BLOOD COUNT Leukocytes [#/volume] in Blood by Automated count 12.0 10^3/uL 4.2 - 11.0 H [facility] Erythrocytes [#/volume] in Blood by Automated count 4.69 10^6/uL 4. 20 - 5.40 [facility] Hemoglobin [Mass/volume] in Blood 13.2 g/dL 12.0 - 16.0 [facility] Hematocrit [Volume Fraction] of Blood by Automated count 39.0 % 3 7.0 - 47.0 [facility] Erythrocyte mean corpuscular volume [Entitic volume] by Auto mated count 83.2 fL 81.0 - 101 [facility] Erythrocyte mean corpuscular hemoglobin [Entitic mass] by Automated count 28.1 pg 27.0 - 34.0 [facility] Erythrocyte mean corpuscular hemoglobin concentration [Mass/volume] by Automated count 33.8 g/dL 31.0 - 36.0 [facility] Erythrocyte distribution width [Ratio] by Automated count 12.5 % 11.5 - 14.5 [facility] Platelets [#/volume] in Blood by Automated count 330 10^3/uL 150 - 45 0 [facility] Platelet mean volume [Entitic volume] in Blood by Automated count 8.1 fL 7.4 - 10.4 [facility] ID Date Data Source [id number] 11/14/2020 02:39:00 PM EDT [facility] Name Value Range Interpretation Code Description Data Pennie rce(s) Supporting Document(s) Hematocrit [Volume Fraction] of Blood by Automated count 37.2 % 3 7.0 - 47.0 [facility] ID Date Data Source [id number] 11/14/2020 08:29:00 AM EDT [facility] Name Value Range Interpretation Code Description Data Pennie rce(s) Supporting Document(s) HCG URINE QUAL NEGATIVE NORMAL: NEGATIVE [facility] HCG URINE QL REENTER NEGATIVE NORMAL: NEGATIVE [facility] { KIT LOT # [id number] ){ KIT EXP DATE 02.09.22 ){ PROCEDURAL CONTROL VALID ) ID Date Data Source [id number] 11/09/2020 10:58:00 AM EDT [facility] Name Value Range Interpretation Code Description Data Pennie rce(s) Supporting Document(s) SARS coronavirus 2 RNA Not Detected [facility] This lab was ordered by [facility] and reported by [facility]. ID Date Data Source MRI Breast Bilat with and w/o Cont 11/03/2020 12:00:00 AM ED T eCW1 ([facility]) Name Value Range Interpretation Code Description Data Pennie rce(s) Supporting Document(s) MRI Breast Bilat with and w/o Cont eCW1 ([facility]) ID Date Data Source [id number] 10/23/2020 04:30:00 PM EDT [facility] Surgical Pathology ReportName: JAJA CODYN: [id number] Number: [id number] Date: 10/20/2020 00:00Received Date: 10/20/2020 13:36Physician(s): CARYN JOHNSTON,DO CRISTINA RIVERA MDSpecimen(s) ReceivedA: Material received for consultation, [facility], [id number] HistoryInvasive ductal carcinoma. Do ER, MI and HER2. Do FISH if equivocal.DiagnosisIMMUNOHISTOCHEMISTRY, LEFT BREAST BIOPSY ([id number], 10/18/20): ESTROGEN RECEPTORS: Positive (strong to moderate, 100%).PROGESTERONE RECEPTORS: Positive (strong, 100%).HER2: Negative (1+).Electronically Signed By Jonah Vegas M.D., Attending Pathologist10/23/2020 16:30:38 Unless 'gross-only' is specified, the final diagnosis is based on amicroscopic examination of manufacturer's service representative sections of tissue.Gross DescriptionReceived from [facility] in [place], [place], is 1 paraffinblock, labeled [id number], with the corresponding pathology report. This report may include one or more immunohistochemical stain results thatuse analyte specific reagents. All positive and negative controls havebeen reviewed by the attending pathologist and are satisfactory. The testswere developed and their performance characteris tics determined by [facility] Pathology department. They have not been cleared or approved by the USFood and Drug Administration. The FDA has determined that such clearanceor approval is not necessary. Name Value Range Interpretation Code Description Data Pennie rce(s) Supporting Document(s) ID Date Data Source [id number] 07/11/2020 12:24:00 PM EDT [facility] [address] [place] [address] [phone] NAME SEX PT STATUS ACCOUNT NUMBER SERGIO CODY REG REF [id number] ORDERING PHYSICIAN LOCATION MEDICAL RECORD NO. Yousif Prince MD MRI [id number] ATTENDING PHYSICIAN DATE OF DATE OF EXAM/TIME [facility],[place] 1965 07/11/20 1141 TYPE / EXAM MRI Brain without contrast REASON FOR EXAM HEADACHES Clinical History/Indication for Exam: HEADACHES MRI BRAIN WITHOUT INTRAVENOUS CONTRAST INDICATION: HEADACHES TECHNIQUE: Magnetic resonance images of the head/brain without intravenous contrast in multiple planes. COMPARISON: No relevant prior studies available. FINDINGS: Brain: No acute infarction. No acute hemorrhage. No mass-effect. No parenchymal signal abnormality identified. Midline shift: None. Ventricles: Normal in caliber. Basal cisterns are clear. Bones/joints: Intact. No acute fracture. Soft tissues: Scalp is intact. Sinuses: Clear. Mastoid air cells: Clear. Orbits: Within normal limits. Other vasculature: Major intracranial flow voids are preserved. IMPRESSION: Unremarkable MRI of the brain. REPORT SIGNATURE ON FILE 07/11/2020 (12:24 Eastern Time ) Signed by: Blue Hodges MD, PhD. Reported By Blue Hodges MD on 07/11/20 1224 Signed By Blue Hodges MD on 07/11/20 1224 Date Time CC: [facility]; Blue Hodges MD Techn: IRLANDA Trans Dt/Tm: Trans by: DT Prt Dt/Tm: : Total DLP = 0.00 mGy-cm : Total Radiation Dose = 0.0000 mSv Lifetime Dose: 0 mSv Name Value Range Interpretation Code Description Data Pennie rce(s) Supporting Document(s) ID Date Data Source [id number] 01/22/2020 12:00:00 AM EST [facility] Name Value Range Interpretation Code Description Data Pennie rce(s) Supporting Document(s) SARS coronavirus 2 RNA [Presence] in Res piratory specimen by AMY with probe detection [facility] This lab was ordered by [facility] and reported by [facility]. ID Date Data Source [id number] 01/18/2020 12:00:00 AM EST [facility] Name Value Range Interpretation Code Description Data Pennie rce(s) Supporting Document(s) 2019-nCoV RNA XXX AMY+probe-Imp [facility] This lab was ordered by [facility] and reported by [facility]. ID Date Data Source [id number] 12/23/2019 12:00:00 AM EST [facility] Name Value Range Interpretation Code Description Data Pennie rce(s) Supporting Document(s) SARS coronavirus 2 RNA [facility] This lab was ordered by [facility] and rep orted by [facility]. Procedure Social History Code Duration Value Status Description Data Source(s ) Smoking 10/23/2020 12:00:00 AM EDT Never Smoker completed Never S moker eCW1 ([facility]) Smoking 10/23/2020 12:00:00 AM EDT Never Smoker completed Never S moker eCW1 ([facility]) Smoking 10/23/2020 12:00:00 AM EDT Never Smoker completed Never S moker eCW1 ([facility]) Smoking 10/23/2020 12:00:00 AM EDT Never Smoker completed Never S moker eCW1 ([facility]) Smoking 10/04/2020 12:00:00 AM EDT Never Smoker completed Never S moker eCW1 ([facility]) Smoking 10/04/2020 12:00:00 AM EDT Never Smoker completed Never S moker eCW1 ([facility]) Smoking 10/04/2020 12:00:00 AM EDT Never Smoker completed Never S moker eCW1 ([facility]) Smoking 10/04/2020 12:00:00 AM EDT Never Smoker completed Never S moker eCW1 ([facility]) Vital Signs ID Date Data Source UNK Name Value Range Interpretation Code Description Data Source(s) Body weight 241 [lb_av] 241 [lb_av] eCW1 ([facility]) Body weight 109.32 kg 109.32 kg W1 ([facility]) Respiratory rate 18 /min 18 /min eCW1 ([facility]) Body temperature 97.2 [degF] 97.2 [degF] eCW1 ( [facility]) Systolic blood pressure 118 mm[Hg] 118 mm[Hg] e CW1 ([facility]) Diastolic blood pressure 80 mm[Hg] 80 mm[Hg] eCW1 ([facility]) Body height 65 [in_i] 65 [in_i] W1 ([facility]) Body mass index (BMI) [Ratio] 40.1 kg/m2 40.1 k g/m2 eCW1 ([facility]) Heart rate 77 /min 77 /min eCW1 ([facility]) Systolic blood pressure 125 mm[Hg] 125 mm[Hg] M EDENT ([facility]) Diastolic blood pressure 82 mm[Hg] 82 mm[Hg] MEDENT ([facility]) Heart rate 82 /min 82 /min MEDENT ([facility]) Body temperature 98.6 [degF] 98.6 [degF] MEDENT ([facility]) Respiratory rate 18 /min 18 /min MEDENT ( [facility]) Oxygen saturation in Arterial blood by Pulse oximetry 97 % 97 % MEDENT ([facility]) Body weight 240.00 [lb_av] 240.00 [lb_av] MEDEN T ([facility]) Body weight 108.864 kg 108.864 kg MEDENT ([facility]) Body height 65 [in_i] 65 [in_i] [facility] ([facility]) 5'5" Body mass index (BMI) [Ratio] 39.9 kg/m2 39.9 k g/m2 [facility] ([facility]) Body surface area Derived from formula 2.14 m2 2.14 m2 [facility] ([facility]) Body weight 241 [lb_av] 241 [lb_av] eCW1 ([facility]) Body weight 109.32 kg 109.32 kg W1 ([facility]) Body temperature 98.1 [degF] 98.1 [degF] eCW1 ( [facility]) Systolic blood pressure 110 mm[Hg] 110 mm[Hg] e CW1 ([facility]) Diastolic blood pressure 70 mm[Hg] 70 mm[Hg] eCW1 ([facility]) Body height 65 [in_i] 65 [in_i] eCW1 ([facility]) Body mass index (BMI) [Ratio] 40.1 kg/m2 40.1 k g/m2 [facility] ([facility]) Heart rate 85 /min 85 /min eCW1 ([facility]) Respiratory rate 18 /min 18 /min eCW1 ([facility]) ID Date Data Source [id number] 11/21/2020 10:54:24 AM EDT [facility] Name Value Range Interpretation Code Description Data Source(s) WEIGHT RECORDED 239.00 pounds 239.00 pounds [facility] Height 65 Inches 065 Inches [facility] Patient Treatment Plan of Care Planned Activity Planned Date Details Description Data Source (s) Lidocaine 25 MG/ML / Prilocaine 25 MG/ML Topical Cream 11/06/2020 12:00:00 AM EDT eCW1 ([facility]) Lidocaine 25 MG/ML / Prilocaine 25 MG/ML Topical Cream 11/06/2020 12:00:00 AM EDT eCW1 ([facility])
--- OUTSIDE RECORDS SUMMARY | 2020-11-23 08:32 | CCD ---
Author Author [facility] Organization [facility] Address Unknown Phone Unavailable Care Team Providers Care Trim Attacher Name Role Phone Faustojanelle Michelle Unavailable PROBLEMS Type Condition ICD9-CM Code [id number] Code Onset Dates Condition S tatus W/U Status Risk SNOMED Code Notes Problem Invasive ductal carcinoma of breast C50.919 Acti ve confirmed [id number] Problem Malignant neoplasm of unspecified site of left female breast C50.912 Active confirmed 014194959 Problem Abnormal mammogram R92.8 Active confirmed 1 01826193 Problem Abnormal mammogram of left breast R92.8 Active confirmed 023610200 ALLERGIES Allergen (clinical drug ingredient) Drug/Non Drug Allergy do cumented on EMR Reaction Allergy Type Onset Date Status Latex Latex Rash Drug Allergy Active morphine Morphine Rash Drug Allergy Active codeine Codeine Rash Drug Allergy Active penicillin V Penicillin Rash Drug Allergy Active ENCOUNTERS from 1967 to 2020-11-20 Encounter Location Date Provider Diagnosis [facility] Breast Care [address] [place] [address] [place] [address] Nov, Michelle Esquivel IMMUNIZATIONS No Information SOCIAL HISTORY [...] Notes Start Da te End Date Status Multivitamin - 1 tablet Orally Once a day Active Tylenol 325 MG 1 tablet as needed Orally every 4 hrs prn Active Lidocaine-Prilocaine 2.5-2.5 % apply entire tube to le ft nipple & surrounding tissue 2 hours before coming to hospital for surgery. Cover with plastic Externally once for 1 day Oct, Active Advil 200 MG 1 tablet with food or milk as needed Orally Thre e times a day prn Active PROCEDURES No Information RESULTS No Results REASON FOR VISIT emla MEDICAL (GENERAL) HISTORY Type Description Date Medical History headaches Medical History gall stones Medical History endometriosis Medical History fatigue Medical History Right foot/ankle pain Surgical History 1994 Surgical History laparoscopy Surgical History tonsils removed Surgical History Left breast ultrasound guided bx 10/18/20 Goals Section No Information Health Concerns No Information MEDICAL EQUIPMENT No Information MENTAL STATUS No Information FUNCTIONAL STATUS No Information ASSESSMENTS No Information PLAN OF TREATMENT Medication Medication Name Sig Start Date Stop Date Lidocaine-Prilocaine 2.5-2.5 % apply entire tube to le ft nipple & surrounding tissue 2 hours before coming to hospital for surgery. Cover with plastic Externally once for 1 day Oct, Next Appt Details Provider Name:Michelle Esquivel, 30-11-13 12:00:00 AM, [address] [place] [id number], [place], [address], Provider Name:Michelle Esquivel, 30-11-24 10:00:00 AM, [address] [place], [place] [address], [place], [address], Provider Name:Michelle Esquivel, 31-12-14 09:00:00 AM, [address] [place] [address], [place], [address], Insurance Providers Payer Name Payer Address Payer Phone Insured Name Patient Relati onship to Insured Coverage Start Date Coverage End Date [facility] [employer] [id number] [place] [id number] ALESSANDRO DE SOUZA
--- OUTSIDE RECORDS SUMMARY | 2020-11-23 08:32 | CCD ---
Author Author [facility] Organization [facility] Address Unknown Phone Unavailable Care Team Providers Care Electric Shaver Mechanic Name Role Phone Michelle Esquivel Unavailable PROBLEMS Type Condition ICD9-CM Code [id number] Code Onset Dates Condition S tatus W/U Status Risk SNOMED Code Notes Problem Abnormal mammogram R92.8 Active confirmed 1 88086039 Problem Abnormal mammogram of left breast R92.8 Active confirmed [id number] ALLERGIES Allergen (clinical drug ingredient) Drug/Non Drug Allergy do cumented on EMR Reaction Allergy Type Onset Date Status Latex Latex Rash Drug Allergy Active morphine Morphine Rash Drug Allergy Active codeine Codeine Rash Drug Allergy Active penicillin V Penicillin Rash Drug Allergy Active ENCOUNTERS from 1967 to 2020-10-22 Encounter Location Date Provider Diagnosis [facility] Breast [facility] [address] [place] [address] [place] [address] 08 Oct, 2020 Michelle Esquivel IMMUNIZATIONS No [...] Information RESULTS No Results REASON FOR VISIT R US bx w clip, mammo [facility] [facility] (GENERAL) HISTORY Type Description Date Medical [...] Next Appt Details Provider Name:Michelle Esquivel, 20 - 04:30:00 PM, [address] [place] [address], , [place], [place], [facility], Insurance Providers Payer Name Payer Address Payer Phone Insured Name Patient Relati onship to Insured Coverage Start Date Coverage End Date [facility] INSURANCE [id number] [place] [id number] ALESSANDRO DE SOUZA
--- OUTSIDE RECORDS SUMMARY | 2020-11-23 08:32 | CCD ---
Author Author [facility] Organization [facility] Address Unknown Phone Unavailable Care Team Providers Care Feeder Tender Name Role Phone Faustojanelle Michelle Unavailable PROBLEMS Type Condition ICD9-CM Code [id number] Code Onset Dates Condition S tatus W/U Status Risk SNOMED Code Notes Problem Abnormal mammogram R92.8 Active confirmed 1 15338786 Problem Abnormal mammogram of left breast R92.8 Active confirmed 847006090 ALLERGIES Allergen (clinical drug ingredient) Drug/Non Drug Allergy do cumented on EMR Reaction Allergy Type Onset Date Status Latex Latex Rash Drug Allergy Active morphine Morphine Rash Drug Allergy Active codeine Codeine Rash Drug Allergy Active penicillin V Penicillin Rash Drug Allergy Active ENCOUNTERS from 1967 to 2020-10-14 Encounter Location Date Provider Diagnosis [facility] Breast Care [address] [place] [address] [place] [address] Sep, Michelle Esquivel Abnormal mammogram of left b reast R92.8 and Family history of cancer Z80.9 IMMUNIZATIONS No Information SOCIAL HISTORY Tobacco Use: Social History Observation Description Date Details (start date - stop date) Never Smoker Sex Assigned At : Social History Observation Description Sex Assigned At Unknown Tobacco Use: Question Answer Notes Are you a: never smoker REASON FOR REFERRAL No Information VITAL SIGNS Weight 241 lbs Sep, Weight-kg 109.32 kg Sep, Height 65 in Sep, BMI 40.1 kg/m2 Sep, Heart Rate 85 /min Sep, Respiratory Rate 18 /min Sep, Temperature 98.1 degrees Fahrenheit Sep, Oximetry 98 Sep, Blood pressure systolic 110 mm Hg Sep, Blood pressure diastolic 70 mm Hg Sep, MEDICATIONS Medication SIG (Take, Route, Frequency, Duration) [...] Information RESULTS No Results REASON FOR VISIT LEFT breast birads 4, Rec US bx MEDICAL (GENERAL) HISTORY Type Description Date Medical History headaches Medical History gall stones Medical History endometriosis Medical History fatigue Medical History Right foot/ankle pain Surgical History 1994 Surgical History laparoscopy Surgical History tonsils removed Goals Section No Information Health Concerns No Information MEDICAL EQUIPMENT No Information MENTAL STATUS No Information FUNCTIONAL STATUS No Information ASSESSMENTS Encounter Date Diagnosis Assessment Notes Treatment Notes Treatm ent Clinical Notes Sep, Abnormal mammogram of left breast (ICD-10 - R92. 8) I reviewed the images and the radiology reports with Ms. De Souza and explained that her mammogram noted a left breast lesion. There is possible sonographic correlate noted at 2:00, 8cm (10 cm on formal sono) from the nipple. BIRADS 4 category was assigned to this lesion and it is considered suspicious. Tissue sampling was recommended to rule out malignancy. Of note, patient's previous imaging was in 2014. Since the lesion was seen on the ultrasound, the biopsy can be done with ultrasound guidance. I briefly described the procedure to the patient. I explained that after biopsy a marking clip will be placed at the site of biopsy to allow easier localization of the lesion in case biopsy comes back concerning. After the biopsy she will have a gentle mammogram to confirm the position of the clip. I briefly described risk and possible complications of the procedure including bleeding, infection, and injury to surrounding structures (nipple, skin, muscle, and lung). I asked patient not to take any blood thinning medication including aspirin, ibuprofen and or Excedrin 5 days before her biopsy. We'll schedule her for a left breast ultrasound guided biopsy with clip placement and postbx Left mammogram on October 18 at 2PM. All questions were answered. Patient agrees with the plan Sep, Family history of cancer (ICD-10 - Z80.9) Patient participated in our Cancer screening program and she was not found to be at increased risk for cancer based on her family history. She does not qualify for genetic testing or high risk screening with MRI of the breast based on her family history. Her TC score was 9.5% Sep, Other Time spent face to face with the patient with over 50 % of time spent counseling the patient : 51 min Time spent reviewing the chart, requested consult information, radiology reports and imagin min TOTAL TIME SPENT FOR CARE OF THIS PATIENT AT THIS ENCOUNTER: 71 min I, Dr. Esquivel, reviewed the medical note prepared by the scribe and confirm the findings and the discussed plan. PLAN OF TREATMENT Treatment Notes Assessment Notes Clinical Notes Abnormal mammogram of left breast I reviewed the image s and the radiology reports with Ms. De Souza and explained that her mammogram noted a left breast lesion. There is possible sonographic correlate noted at 2:00, 8cm (10 cm on formal sono) from the nipple. BIRADS 4 category was assigned to this lesion and it is considered suspicious. Tissue sampling was recommended to rule out malignancy.Of note, patient's previous imaging was in 2014.Since the lesion was seen on the ultrasound, the biopsy can be done with ultrasound guidance. I briefly described the procedure to the patient. I explained that after biopsy a marking clip will be placed at the site of biopsy to allow easier localization of the lesion in case biopsy comes back concerning. After the biopsy she will have a gentle mammogram to confirm the position of the clip.I briefly described risk and possible complications of the procedure including bleeding, infection, and injury to surrounding structures (nipple, skin, muscle, and lung).I asked patient not to take any blood thinning medication including aspirin, ibuprofen and or Excedrin 5 days before her biopsy.We'll schedule her for a left breast ultrasound guided biopsy with clip placement and postbx Left mammogram on Oct at 2PM.All questions were answered. Patient agrees with the plan Family history of cancer Patient participated in our Cancer screening program and she was not found to be at increased risk for cancer based on her family history. She does not qualify for genetic testing or high risk screening with MRI of the breast based on her family history.Her TC score was 9.5% Treatment Notes Test Name Order Date [facility] Diagnostic Unilateral (Ultrasound if Indicat ed) (3D Mammo) 2020-10-04 [facility] US Guided Breast Biopsy (Clip Placement if Indicat ed) 2020-10-04 Next Appt Details Provider Name:Michelle K Sierra, 01-11-07 02:00:00 PM, [address] [place] [address], , [place], [address], Provider Name:Michelle Esquivel, 31-10-12 04:30:00 PM, [address] [place] [address], , [place], [address], Insurance Providers Payer Name Payer Address Payer Phone Insured Name Patient Relati onship to Insured Coverage Start Date Coverage End Date [facility] [address] [place] [facility] [facility] [place] [id number] ALESSANDRO DE SOUZA
--- OUTSIDE RECORDS SUMMARY | 2020-11-23 08:32 | CCD ---
Author Author [facility] Organization [facility] Address Unknown Phone Unavailable Care Team Providers Care Adjustment Clerk Name Role Phone Michelle Esquivel Unavailable PROBLEMS Type Condition ICD9-CM Code [id number] Code Onset Dates Condition S tatus W/U Status Risk SNOMED Code Notes Problem Abnormal mammogram of left breast R92.8 Active confirmed [id number] Problem Invasive ductal carcinoma of breast C50.919 Acti ve confirmed 584937868 Problem Abnormal mammogram R92.8 Active confirmed 1 28221465 ALLERGIES Allergen (clinical drug ingredient) Drug/Non Drug Allergy do cumented on EMR Reaction Allergy Type Onset Date Status Latex Latex Rash Drug Allergy Active morphine Morphine Rash Drug Allergy Active codeine Codeine Rash Drug Allergy Active penicillin V Penicillin Rash Drug Allergy Active ENCOUNTERS from 1967 to 2020-11-01 Encounter Location Date Provider Diagnosis [facility] Breast Care [address] [place] [address] [place] [address] Oct, Michelle Esquivel IMMUNIZATIONS No Information SOCIAL [...] needed Orally every 4 hrs prn Active Advil 200 MG 1 tablet with food or milk as needed Orally Thre e times a day prn Active Multivitamin - 1 tablet Orally Once a day Active PROCEDURES No Information RESULTS No Results REASON FOR VISIT QUESTIONS / BREAST MEDICAL (GENERAL) HISTORY Type Description Date Medical [...] Information ASSESSMENTS No Information PLAN OF TREATMENT No Information Insurance Providers Payer Name Payer Address Payer Phone Insured Name Patient Relati onship to Insured Coverage Start Date Coverage End Date [facility] INSURANCE [address] [facility] [id number] ALESSANDRO DE SOUZA A
--- OUTSIDE RECORDS SUMMARY | 2020-11-23 08:32 | CCD | Summary of Care ---
Author Author [facility] Organization [facility] Address Unknown Phone Unavailable Care Team Providers Care Desktop Support Associate Name Role Phone SureshWoody PCP Encounter Details Care Team Description Date Type Department 10/20/2020 [facility] Anatomical Encounter Pathology at [place] [address] [place] [address] Allergies Not on Filedocumented as of this encounter (statuses as of 10/21/2020) Medications Not on filedocumented as of this encounter (statuses as of 10/21/2020) Active Problems Not on filedocumented as of this encounter (statuses as of 10/21/2020) Social History Date Tobacco Use Types Packs/Day Years Used Never Assessed Sex Assigned at Date Recorded Not on file documented as of this encounter Last Filed Vital Signs Not on filedocumented in this encounter Plan of Treatment Date/Time Name Type Priority Associated Diag noses 10/20/2020 1:36 PM EDT Surgical pathology Pathology and Routine consult Cytology Order Schedule Name Type Priority Associated Diag noses Once for 1 Occurrences starting 10/21/19 21 until 10/20/2020 Surgical pathology Pathology and Routine consult Cytology Health Maintenance Due Date Last Done Comments MMR Vaccines (1 of - 08/18/1968 Standard series) Varicella Vaccines (1 of 08/18/1968 2 - 2-dose childhood series) DTaP,Tdap,and Td Vaccines 08/18/1974 (1 - Tdap) HIV Screening 08/18/1980 Cervical Cancer Screening 08/18/1988 5 years Breast Cancer Screening 2 08/18/2017 years Colon Cancer Screening 10 08/18/2017 yrs Influenza Vaccine 11/10/2020 Pneumococcal Vaccine: 65+ 08/18/2032 Years (1 of - PPSV23) HIB Vaccines Aged Out No longer eligible based on patient's age to complete this topic Hepatitis A Vaccines Aged Out No longer eligibl e based on patient's age to complete this topic Hepatitis B Vaccines Aged Out No longer eligibl e based on patient's age to complete this topic IPV Vaccines Aged Out No longer eligible based on patient's age to complete this topic Pneumococcal Vaccine: Aged Out No longer eligib le based on patient's age to Pediatrics (0 to 5 Years) complete this topic and At-Risk Patients (6 to 64 Years) documented as of this encounter Results Not on filedocumented in this encounter
--- OUTSIDE RECORDS SUMMARY | 2020-11-23 08:32 | CCD | Continuity of Care Document ---
Author Author Amberly GONZALEZ MD Organization Unknown Address [address] [place] [address] Phone [phone] Care Team Providers Care Stone Mason Name Role Phone Usa Meddac, Melani c AUTM Unavailable Problems Description No Information Available Social History Type Date Description Comments Sex Unknown ETOH Use Rarely consumes alcohol Tobacco Use Start: Unknown Patient has never smoked Recreational Drug Use Denies Drug Use Allergies, Adverse Reactions, Alerts Active Allergies Criticality Reaction | Severity Comments Date Penicillin V Unable to assess criticality Hives 10/06/2020 Morphine Unable to assess criticality Hives 10/06/2020 Codeine Unable to assess criticality Hives 10/06/2020 Medications Description No Active Medications Immunizations Description No Information Available Vital Signs Date Vital Result Comment 10/06/2020 2:56pm BP Systolic 125 mmHg BP Diastolic 82 mmHg Heart Rate 82 /min Body Temperature 98.6 F Respiratory Rate 18 /min O2 % BldC Oximetry 97 % Weight 240.00 lb Weight 108.864 kg Height 65 inches 5'5" BMI (Body Mass Index) 39.9 kg/m2 BSA (Body Surface Area) 2.14 m2 Results Description No Information Available Procedures Description No Information Available Medical Devices Description No Information Available Encounters Description No Information Available Assessments Description No Information Available Plan of Treatment No Information Available Functional Status Description No Information Available Mental Status Description No Information Available Referrals Description No Information Available
--- OUTSIDE RECORDS SUMMARY | 2020-11-23 08:32 | CCD ---
Author Author [facility] Organization [facility] Address Unknown Phone Unavailable Care Team Providers Care Engine Dynamometer Tester Name Role Phone Michelle Esquivel Unavailable PROBLEMS Type Condition ICD9-CM Code [id number] Code Onset Dates Condition S tatus W/U Status Risk SNOMED Code Notes Problem Abnormal mammogram of left breast R92.8 Active confirmed 790964486 Problem Invasive ductal carcinoma of breast C50.919 Acti ve confirmed 852367588 Problem Abnormal mammogram R92.8 Active confirmed 1 08227012 ALLERGIES Allergen (clinical drug ingredient) Drug/Non Drug Allergy do cumented on EMR Reaction Allergy Type Onset Date Status Latex Latex Rash Drug Allergy Active morphine Morphine Rash Drug Allergy Active codeine Codeine Rash Drug Allergy Active penicillin V Penicillin Rash Drug Allergy Active ENCOUNTERS from 1967 to 2020-11-02 Encounter Location Date Provider Diagnosis [facility] Breast Care [address] [place] [address] [place] [address] Oct, Michelle Esquivel IMMUNIZATIONS No Information SOCIAL [...] Information RESULTS No Results REASON FOR VISIT UPDATED REFERRAL MEDICAL (GENERAL) HISTORY Type Description Date Medical [...] Insured Coverage Start Date Coverage End Date [facility] [address] [facility] [id number] ALESSANDRO DE SOUZA A
--- OUTSIDE RECORDS SUMMARY | 2020-11-23 08:32 | CCD ---
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 Name Role Phone Zoeyjaiden Michelle Unavailable PROBLEMS Type Condition ICD9-CM Code PIY95-AX Code Onset Dates Condition S tatus W/U Status Risk SNOMED Code Notes Problem Invasive ductal carcinoma of breast C50.919 Acti ve confirmed 251792997 Problem Malignant neoplasm of unspecified site of left female breast C50.912 Active confirmed 799049546 Problem Abnormal mammogram R92.8 Active confirmed 1 [id number] Problem Abnormal mammogram of left breast R92.8 Active confirmed [id number] ALLERGIES Allergen (clinical drug ingredient) Drug/Non Drug Allergy do cumented on EMR Reaction Allergy Type Onset Date Status Latex Latex Rash Drug Allergy Active morphine Morphine Rash Drug Allergy Active codeine Codeine Rash Drug Allergy Active penicillin V Penicillin Rash Drug Allergy Active ENCOUNTERS from 1967 to 2020-11-07 Encounter Location Date Provider Diagnosis [facility] [address] [place] [address] [place] [address] 13 Oct, 2020 Michelle Esquivel Invasive ductal carcinoma of breast C50.919 ; Family history of cancer Z80.9 and Genetic testing Z13.79 IMMUNIZATIONS No Information SOCIAL HISTORY Tobacco Use: Social History Observation Description Date Details (start date - stop date) Never Smoker Sex Assigned At : Social History Observation Description Sex Assigned At Unknown Tobacco Use: Question Answer Notes Are you a: never smoker REASON FOR REFERRAL from 1967 to 2020-11-07 Reason Left breast cancer Diagnosis 1 Invasive ductal carcinoma of breast (C50.919) Referral Organization [facility] Referring Provider First Name Michelle Referring Provider Last Name Faustojanelle Referring Provider Specialty Surgery Referred Provider Cara Merino Referred Provider Specialty Oncology Referral Priority Routine General Notes Tori Salcedo 10/25/2020 05:09:03 PM >Referral faxed. VITAL SIGNS Weight 241 lbs Oct, Weight-kg 109.32 kg Oct, Height 65 in Oct, BMI 40.1 kg/m2 Oct, Heart Rate 77 /min Oct, Respiratory Rate 18 /min Oct, Temperature 97.2 degrees Fahrenheit Oct, Oximetry 99 Oct, Blood pressure systolic 118 mm Hg Oct, Blood pressure diastolic 80 mm Hg Oct, MEDICATIONS Medication SIG (Take, Route, Frequency, Duration) [...] day prn Active PROCEDURES No Information RESULTS Component Value Reference Range MRI Breast Bilat with and w/o Cont Reviewed date:11/06/2020 11:46:09 Interpretation:AD Performing Lab:[facility],[address]], ,[place] [id number] REASON FOR VISIT POST L US BX MEDICAL (GENERAL) HISTORY Type Description Date Medical [...] Notes Treatment Notes Treatm ent Clinical Notes Oct, Invasive ductal carcinoma of breast (ICD-10 - C5 0.919) LEFT BREAST CANCER IDC GRADE 2 ER ? NM ? HER2 ? cT1c (1.7cm vs 1cm) cN0 cM0 ANATOMICAL STAGE 1 CLINICAL PROGNOSTIC STAGE: pending ER/NM/HER2 PLAN: 1. Will wait for ER/NM/HER2 results-will call with the results 2. Will obtain MRI breast to delineate extent of disease. BMP will be orders to assess kidney function 3. Will defer surgical procedure planning until MRI results are available 4. Preop testing/ medical clearance will need to be obtained prior to surgery 5. Genetic testing, will provide pt with the kit on Friday 6. Oncotype DX postop if invasive cancer meets testing criteria and no NAC done 7. Referral to Medical Oncology 8. Will wait with [facility] referral until surgical procedure is determined I reviewed the breast imaging and pathology results with Ms. De Souza and her family. We have reviewed the overall breast cancer evaluation and staging. Based on the current information Ms. De Souza was found to have a left breast cancer, INVASIVE DUCTAL CARCINOMA, GRADE 2, measuring 1.7cm. This puts her cancer into category T1c. We are still waiting for ER/NM/HER2 receptors. She does not have palpable axillary lymph nodes on exam. Based on this inf ormation, her lymph node status is described as N0. I am planning to get a breast MRI with contrast to assess extent of the disease. Patient will need BMP to assess her kidney reserves. I have discussed various component of multidisciplinary approach to breast cancer which includes local treatments with surgery and radiation therapy and systemic treatments with antihormonal pill and possible chemotherapy. Regarding surgical component of the treatment, patient is likely a candidate for both breast conserving surgery and for mastectomy. I explained to her that, surgery carries risks and potential complications, most common of which are risk of bleeding, infection and injury to surrounding structures like skin, nipple, muscle, lung, nerves especially long thoracic nerve and thoracodorsal nerve. Postsurgical complications may include, but are not limited to, numbness of the skin and or nipple, scarring, bruising, hematomas, seromas, flap and/or nipple necrosis, lymphedema, nerve injury causing weakness in motor function of upper extremity or scapula, contour deformity, poor cosmetic outcomes and need for additional surgeries. Those risks were explained to the patient and she expressed understanding. We have discussed that with breast conserving surgery there is a higher risk of locoregional recurrence of tumor because there is more diomede breast tissue left behind. The percentage of locoregional recurrence is lower with mastectomy than with breast conserving surgery but it is not zero as it is impossible to remove 100% of all breast tissue cells during mastectomy. There is also 10-20% chance of positive margins with breast conserving surgery which will warrant additional surgery to clear those margins. I also explained that with breast conserving surgery she may need to have radiation therapy in order to assure equal survival between the breast conservative treatment and mastectomy. Radiation therapy after mastectomy will be warranted only if the final mastectomy margins are positive or if lymph nodes are positive. We have also discussed that if she chooses mastectomy, she is entitled to reconstruction if she wishes to have it. Reconstruction options will be discussed in details with plastic surgeon. I have explained to the patient that reconstruction is considered part of breast cancer treatment and is covered by insurance. I explained that in cases of invasive cancer, we pursue sentinel lymph node biopsy in fit patients in addition to removal of the tumor from the breast. I explained that this is done to test the very first lymph nodes draining the breast for presence of cancer. This will be done with radionucleotide injection and possibly with blue dye tracer. If the lymph nodes contain cancer, depending on what surgery was performed and how many lymph nodes are positive, additional surgery and/ or radiation therapy to axilla may be warranted as well. I will send a prescription for the EMLA cream to be applied to the affected nipple in order to decrease discomfort of injections. Regarding evaluation of contralateral breast, she had a screening mammogram done on 09/07/2020. This did not show any suspicious lesions in the contralateral breast. I am planning to get MRI of the breast to delineate extent of disease. This will also evaluate the contralateral breast. Since patient was diagnosed with breast cancer, she qualifies for genetic testing. I provided the genetic testing counseling -see the note below. At this time, patient wishes to pursue genetic testing- the blood kit will be provided to her on Friday as it is too late today to get the testing done. I discussed with the patient and her family that Oncotype Dx is used to predict the probability of Hormone (+) Her2(-) cancer coming back. I explained that if the test comes back with a high score, chemotherapy may be considered. I will place referral for Medical Oncology. This appointment can be scheduled after surgery. I explained to the patient that she may need to follow up with radiation oncology if she wants to pursue breast conserving surgery or if lymph nodes or mastectomy margins are positive. I will wait with this referral for now. Finally, I informed patient that we will schedule an appointment with her primary care doctor as we need a surgical clearance, latest labs and imaging (CBC, BMP, CXR,EKG) prior to surgery. All questions were answered. Patient and her family agree with the plan Oct, Family history of cancer (ICD-10 - Z80.9) Patient participated in our Cancer screening program and she was not found to be at increased risk for cancer based on her family history. She does not qualify for high risk screening with MRI of the breast based on her family history. Her TC score was 9.5% She does does qualify for the genetic testing base on the personal history of breast cancer. Oct, Genetic testing (ICD-10 - Z13.79) Patient participated in our cancer screening program and she was identified as a person who may be eligible for genetic testing due to her family history. Possible outcomes of genetic testing were discussed with patient with emphasis on the fact that the majority of cancers are not related to germline mutations but are rather due to somatic mutations. I have explained that the genetic testing can come back as positive for specific pathological gene mutation, as negative, or as variant of unknown significance (VUS) which means that there is duration in the gene however we do not have enough information to determine the significance importance of this ulceration. I explained to the patient that we do not asked on VUS and treat them as negative until they are reclassified as pathologically significant mutation or benign alteration. We have discussed that regardless of test outcome patient cannot have her health insurance denied in the future. Patient is interested in proceeding with genetic testing. We will provide her with the blood kit today. We will update her about the results of genetic testing when the test is completed. My patient's relatives who have had breast and/or ovarian cancer are not available for genetic testing because: ___They are . ___My patient does not have any contact with affected relatives. ___The affected relatives refused testing. _x_ Patient has a personal diagnosis of breast cancer. This patient does not have a known hereditary cancer genetic mutation on either side of the family. This patient does not have known Ashkenazi Religion ancestry on either side of the family. Assessment & Plan: This patient's personal and/or family history of cancer is suggestive of a hereditary cancer syndrome. Patient meets the criteria for genetic testing established by medical society guidelines and I recommended that the patient pursues testing based on these criteria. Today we discussed how genetics may affect cancer susceptibility and the options, alternatives, benefits, limitations and potential outcomes of genetic testing for hereditary cancer syndromes. Patient was also made aware of the limitations of testing an unaffected individual for a cancer predisposition syndrome. The genetic test recommended for patient today is called the Integrated BRACanlysis with [employer]. The Integrated [employer] analyzes 35 genes including BRCA1, BRCA2, MLH1, MSH2, MSH6, and PMS2 to identify germline genetic mutations that cause an increased risk for eight primary cancers including: breast, ovarian, endometrial, colorectal, gastric, pancreatic, prostate, and melanomas. Due to significant clinical overlap in hereditary cancer susceptibility genes, a molecular diagnosis of a hereditary cancer condition is necessary to clarify the cancer risks patient carries and the screening, management, and treatment options most appropriate for patient. Oct, Other TOTAL TIME SPENT FOR CARE OF THIS PATIENT AT THIS ENCOUNTER: 81 minutes I, Dr. Esquivel, reviewed the medical note prepared by the scribe and confirm the findings and the discussed plan. PLAN OF TREATMENT Medication Medication Name Sig Start Date Stop Date Lidocaine-Prilocaine 2.5-2.5 % apply entire tube to le ft nipple & surrounding tissue 2 hours before coming to hospital for surgery. Cover with plastic Externally once for 1 day Oct, Treatment Notes Assessment Notes Clinical Notes Invasive ductal carcinoma of breast LEFT BREAST CANCER IDC GRADE 2ER ? NM ? HER2 ?cT1c (1.7cm vs 1cm) cN0 [id number] STAGE 1CLINICAL PROGNOSTIC STAGE: pending ER/NM/[facility]:1. Will wait for ER/NM/HER2 results-will call with the results2. Will obtain MRI breast to delineate extent of disease. BMP will be orders to assess kidney function3. Will defer surgical procedure planning until MRI results are available4. Preop testing/ medical clearance will need to be obtained prior to surgery5. Genetic testing, will provide pt with the kit on Friday6. Oncotype DX postop if invasive cancer meets testing criteria and no NAC done7. Referral to Medical Oncology8. Will wait with [facility] referral until surgical procedure is determinedI reviewed the breast imaging and pathology results with Ms. De Souza and her family.We have reviewed the overall breast cancer evaluation and staging.Based on the current information Ms. De Souza was found to have a left breast cancer, INVASIVE DUCTAL CARCINOMA, GRADE 2, measuring 1.7cm. This puts her cancer into category T1c. We are still waiting for ER/NM/HER2 receptors.She does not have palpable axillary lymph nodes on exam. Based on this information, her lymph node status is described as N0.I am planning to get a breast MRI with contrast to assess extent of the disease. Patient will need BMP to assess her kidney reserves.I have discussed various component of multidisciplinary approach to breast cancer which includes local treatments with surgery and radiation therapy and systemic treatments with antihormonal pill and possible chemotherapy.Regarding surgical component of the treatment, patient is likely a candidate for both breast conserving surgery and for mastectomy.I explained to her that, surgery carries risks and potential complications, most common of which are risk of bleeding, infection and injury to surrounding structures like skin, nipple, muscle, lung, nerves especially long thoracic nerve and thoracodorsal nerve. Postsurgical complications may include, but are not limited to, numbness of the skin and or nipple, scarring, bruising, hematomas, seromas, flap and/or nipple necrosis, lymphedema, nerve injury causing weakness in motor function of upper extremity or scapula, contour deformity, poor cosmetic outcomes and need for additional surgeries. Those risks were explained to the patient and she expressed understanding.We have discussed that with breast conserving surgery there is a higher risk of locoregional recurrence of tumor because there is more diomede breast tissue left behind. The percentage of locoregional recurrence is lower with mastectomy than with breast conserving surgery but it is not zero as it is impossible to remove 100% of all breast tissue cells during mastectomy. There is also 10-20% chance of positive margins with breast conserving surgery which will warrant additional surgery to clear those margins. I also explained that with breast conserving surgery she may need to have radiation therapy in order to assure equal survival between the breast conservative treatment and mastectomy. Radiation therapy after mastectomy will be warranted only if the final mastectomy margins are positive or if lymph nodes are positive.We have also discussed that if she chooses mastectomy, she is entitled to reconstruction if she wishes to have it. Reconstruction options will be discussed in details with plastic surgeon. I have explained to the patient that reconstruction is considered part of breast cancer treatment and is covered by insurance.I explained that in cases of invasive cancer, we pursue sentinel lymph node biopsy in fit patients in addition to removal of the tumor from the breast. I explained that this is done to test the very first lymph nodes draining the breast for presence of cancer. This will be done with radionucleotide injection and possibly with blue dye tracer. If the lymph nodes contain cancer, depending on what surgery was performed and how many lymph nodes are positive, additional surgery and/ or radiation therapy to axilla may be warranted as well. I will send a prescription for the EMLA cream to be applied to the affected nipple in order to decrease discomfort of injections.Regarding evaluation of contralateral breast, she had a screening mammogram done on 09/07/2020. This did not show any suspicious lesions in the contralateral breast. I am planning to get MRI of the breast to delineate extent of disease. This will also evaluate the contralateral breast.Since patient was diagnosed with breast cancer, she qualifies for genetic testing. I provided the genetic testing counseling -see the note below. At this time, patient wishes to pursue genetic testing- the blood kit will be provided to her on Friday as it is too late today to get the testing done.I discussed with the patient and her family that Oncotype Dx is used to predict the probability of Hormone (+) Her2(-) cancer coming back. I explained that if the test comes back with a high score, chemotherapy may be considered.I will place referral for Medical Oncology. This appointment can be scheduled after surgery.I explained to the patient that she may need to follow up with radiation oncology if she wants to pursue breast conserving surgery or if lymph nodes or mastectomy margins are positive. I will wait with this referral for now.Finally, I informed patient that we will schedule an appointment with her primary care doctor as we need a surgical clearance, latest labs and imaging (CBC, BMP, CXR,EKG) prior to surgery.All questions were answered. Patient and her family agree with the plan Family history of cancer Patient participated in our Cancer screening program and she was not found to be at increased risk for cancer based on her family history.She does not qualify for high risk screening with MRI of the breast based on her family history.Her TC score was 9.5%She does does qualify for the genetic testing base on the personal history of breast cancer. Genetic testing Patient participated in our cancer screening program and she was identified as a person who may be eligible for genetic testing due to her family history.Possible outcomes of genetic testing were discussed with patient with emphasis on the fact that the majority of cancers are not related to germline mutations but are rather due to somatic mutations.I have explained that the genetic testing can come back as positive for specific pathological gene mutation, as negative, or as variant of unknown significance (VUS) which means that there is duration in the gene however we do not have enough information to determine the significance importance of this ulceration. I explained to the patient that we do not asked on VUS and treat them as negative until they are reclassified as pathologically significant mutation or benign alteration.We have discussed that regardless of test outcome patient cannot have her health insurance denied in the future.Patient is interested in proceeding with genetic testing. We will provide her with the blood kit today. We will update her about the results of genetic testing when the test is completed. My patient's relatives who have had breast and/or ovarian cancer are not available for genetic testing because:___They are .___My patient does not have any contact with affected relatives.___The affected relatives refused testing._x_ Patient has a personal diagnosis of breast cancer.This patient does not have a known hereditary cancer genetic mutation on either side of the family.This patient does not have known Ashkenazi Religion ancestry on either side of the family.Assessment & Plan:This patient's personal and/or family history of cancer is suggestive of a hereditary cancer syndrome. Patient meets the criteria for genetic testing established by medical society guidelines and I recommended that the patient pursues testing based on these criteria.Today we discussed how genetics may affect cancer susceptibility and the options, alternatives, benefits, limitations and potential outcomes of genetic testing for hereditary cancer syndromes. Patient was also made aware of the limitations of testing an unaffected individual for a cancer predisposition syndrome. The genetic test recommended for patient today is called the Integrated BRACanlysis with [employer]. The Integrated [employer] analyzes 35 genes including BRCA1, BRCA2, MLH1, MSH2, MSH6, and PMS2 to identify germline genetic mutations that cause an increased risk for eight primary cancers including: breast, ovarian, endometr ial, colorectal, gastric, pancreatic, prostate, and melanomas. Due to significant clinical overlap in hereditary cancer susceptibility genes, a molecular diagnosis of a hereditary cancer condition is necessary to clarify the cancer risks patient carries and the screening, management, and treatment options most appropriate for patient. Future Test Test Name Order Date Basic Metabolic Profile (BMP) [id number] Referrals Referral Date Details Left breast cancer, Cara Byrnes [facility] Insurance Providers Payer Name Payer Address Payer Phone Insured Name Patient Relati onship to Insured Coverage Start Date Coverage End Date [facility] [employer] [address] [facility] [address] ALESSANDRO DE SOUZA A
[2020-11-23] MEDS ORDERED: HEPARIN SOD (PORCINE) 5000UNITS/ML 1ML VIAL/SYRINGE SQ ONE (09:25)
[2020-11-23] MEDS ORDERED: CLINDAMYCIN 900 MG in IV 1 EA IV ONE (09:25)
[2020-11-23] MEDS ORDERED: NS 1,000 ML IV SCH (09:25)
[2020-11-23] MEDS ORDERED: propofoL 200 MG/20 ML VIAL As Ordered ONE (10:30)
[2020-11-23] MEDS ORDERED: ONDANSETRON 4MG/2ML VIAL As Ordered ONE ×2 (10:30→16:09)
[2020-11-23] MEDS ORDERED: ROCURONIUM BROMIDE 50 MG/5 ML VIAL As Ordered ONE (10:30)
[2020-11-23] MEDS ORDERED: LIDOCAINE 2% 100MG/5ML SDV (FOR ANES.) As Ordered ONE (10:30)
[2020-11-23] MEDS ORDERED: dexameTHASONE 4 MG/ML 1ML VIAL (J1100 PER 1MG) As Ordered ONE (10:30)
[2020-11-23] MEDS ORDERED: fentaNYL 250 MCG/5 ML INJECTION (J3010) As Ordered ONE (10:31)
[2020-11-23] MEDS ORDERED: MIDAZOLAM INJ 2MG/2ML VIAL (J2250 PER 1MG) As Ordered ONE (10:32)
[2020-11-23] MEDS ORDERED: BUPIVACAINE HCL 0.25% 30ML VIAL As Ordered ONE (11:25)
[2020-11-23] MEDS ORDERED: METHYLENE BLUE 0.5% (5MG/ML) 10 ML AMP (PROVAYBLUE) As Ordered ONE (11:25)
[2020-11-23] MEDS ORDERED: LIDOCAINE 1% SDV 30ML VIAL As Ordered ONE (11:25)
[2020-11-23] MEDS ORDERED: METOCLOPRAMIDE INJ 10MG/2ML VIAL (J2765 PER 1) As Ordered ONE (12:27)
[2020-11-23] MEDS ORDERED: ePHEDrine SULFATE 25 MG/5 ML(5MG/ML) SYRINGE As Ordered ONE (12:41)
[2020-11-23] MEDS ORDERED: SUGAMMADEX SODIUM 500 MG/5 ML VIAL (BRIDION) As Ordered ONE (13:04)
[2020-11-23] MEDS ORDERED: ACETAMINOPHEN 1000MG 100ML IV BTL (OFIRMEV) (J0131 PER 10MG) As Ordered ONE (13:04)
[2020-11-23] MEDS ORDERED: HYDROmorphone HCL 2 MG/ML 1ML VIAL As Ordered ONE (13:04)
[2020-11-23] MEDS ORDERED: SEVOFLURANE INHAL SOLN 250 ML BTL As Ordered ONE (14:10)
[2020-11-23] MEDS ORDERED: ESMOLOL INJ 100MG/10ML VIAL As Ordered ONE (15:59)
[2020-11-23] MEDS ORDERED: PERCOCET 5MG/325MG TAB PO PRN (16:25)
[2020-11-23] MEDS ORDERED: ONDANSETRON 4MG/2ML VIAL IV PRN (16:25)
[2020-11-23] MEDS ORDERED: LR 1,000 ML IV SCH (16:25)
[2020-11-23] MEDS ORDERED: METOCLOPRAMIDE INJ 10MG/2ML VIAL (J2765 PER 1) IV PRN (16:25)
[2020-11-23] MEDS ORDERED: fentaNYL 100 MCG/2 ML INJECTION (J3010) IV PRN (16:25)
[2020-11-23] MEDS ORDERED: ROXI1TAB2 PO (16:30)
[2020-11-23 18:54] VITALS: BP 135/82
--- NOTE | 2020-11-24 15:56 | REP ---
INDICATION: LEFT BREAST CA. COMPARISON: None. TECHNIQUE/RADIOTRACER AND DOSE: This procedure was performed by MANDY uMnoz, under the direct supervision of Dr. Preciado. Images were reviewed with Dr. Preciado prior to dictation. The risks and benefits of the procedure were explained to the patient and informed consent was obtained both orally and written. Directly prior to the start of the procedure, a formal timeout was done in the exam room. Using topical anesthetic and sterile technique 1.028 mCi of filtered Technetium-99m sulfur colloid was injected subdermally in 8 fractionated periareolar injections. FINDINGS: Images obtained 1 hour after injection show dominant focus of uptake in the left axilla.. IMPRESSION: Images obtained 1 hour after injection show a dominant focus of uptake in the left axilla. <Electronically signed by Melissa Duke > 11/24/20 [id number] <Electronically signed by Ori Preciado > 11/24/20 [id number]
--- NOTE | 2020-11-26 22:57 | ROOPDOC ---
[facility] Report Of Operation Report of Operation DATE OF PROCEDURE: 11/23/20 PREPROCEDURE DIAGNOSES: Left breast cancer POSTPROCEDURE DIAGNOSES: same PROCEDURE PERFORMED: Left breast lumpectomy with intraop wire placement and left sentinel lymph node biopsy SURGEON: Dr Caryn Johnston ANESTHESIA: general ESTIMATED BLOOD LOSS: Approximately 50 mL. COMPLICATIONS: none REMARKS: clip, wire and the mass seen in the specimen PROCEDURE NOTE: INDICATIONS: Ms. De Souza is a 55-year-old woman who was found to have a suspicious left breast mass on screening mammogram. This was evaluated with US and sonographic correlate was found. US guided biopsy of the came back as IDC, ER+, OR+, HER-2 negative. MRI of the breast was done and did not show additional suspicious lesions. She opted for breast conservative surgery with sentinel lymph node biopsy. She was medically cleared for surgery by her primary care doctor. Risks and possible complications of surgical procedure including bleeding, infection and injury to surrounding structures were explained to the patient and she wished to proceed. Consent was signed. My initials were placed on the operative site. Subcutaneous injection of 5000 units of heparin was done in Preop. The injection of radioactive tracer was done in radiology department preoperatively. Lymphoscintigraphy imaging was reviewed in preop. DETAILS: Patient was taken to the operating room and placed on the operating room table. A sign in was called stating patients name, date of and the procedure to be done. Preoperative antibiotics were infused. Smooth induction of general anesthesia was done. Patients hands were extended on arm rests. Care was taken not to over extend the arms. Pillow was placed under the knees and a foam was placed under the heels. Sequential compression devices were placed and assured to function correctly. Procedure was started with left breast intraop wire localization. Appropriate time out was done and patients name, date of , and the procedure to be done were confirmed. Left breast was cleaned by me. Intraoperative ultrasound was used to confirm location of the Hydromark clip. Location of the clip was marked on the skin as well. 21 G [employer] Breast Lesion Localization Needle was used to place 25 cm wire through the lesion. The end of the wire was passed a centimeter deep. The images were captured confirming adequate placement of the localizing wire. Switch Technician assisted with the wire placement. Next, patients left breast and axilla were prepped and draped in the usual fashion. Care was taken not to displace the wire. Appropriate time out was done again prior second part of the procedure. Patients name, date of , and the procedure to be done were confirmed. Procedure was started with sentinel lymph node biopsy. Neoprobe was used to locate area of maximum intensity of the signal. Local anesthetic using 1% lidocaine and 0.25 % Marcaine 50/50 mix was injected. An incision was made with scalpel number 15 at the inferior aspect of axillary hair line in the left axilla where the maximum signal was identified. The sharp and blunt dissection was continued through the subcutaneous adipose tissue. Clavipectoral fascia was opened. Neoprobe was used to guide the dissection. First sentinel lymph node was identified in deep axilla and excised. The ex-vivo 10 second count was [id number]. Second sentinel lymph node was identified and excised as well. The ex- vivo 10 second count was [id number]. The specimens were labeled with patients name and sent to pathology. No additional lymph nodes with high radioactive signal were identified. The 10 second count of the background was 9. Adequate hemostasis was assured. Additional local anesthetic was injected into surrounding tissues. Wound was irrigated. Clavipectoral fascia was closed with 3-0 Vicryl interrupted suture. Dermal layer was closed at the end of the case with 3-0 Monocryl and skin was closed with 4-0 Monocryl. Surgical glue was applied to the incision at the end of the procedure. Next, our attention was turned toward the left breast. Local anesthetic using 1% lidocaine and 0.25 % Marcaine 50/50 mix was injected at the site of planned left periareolar incision. The incision was made with the scalpel. Subcutaneous skin flaps were raised and the guide wire was carefully pulled into the wound. Dissection was carries along the wire until the previously marked on the skin area of target lesion location was encountered. At this point, wider excision of the tissue surrounding the wire was done. The Hydromark clip was identified in the tissue with intraoperative hockey stick ultrasound probe. The end of the wire was identified with palpation. The lumpectomy specimen was carefully removed from the breast keeping its proper orientation and moved to the back table where margins were marked with the surgical inking kit following the standard colors recommendations. Specimen was then placed on the grid and placed in [facility]. The image revealed the wire and the Hydromark centrally located in the specimen. The specimen was labeled with patients name and left lumpectomy and sent to pathology. The specimen measured 6.5 x6 cm. Specimens margins were evaluated and felt to be adequate. No additional margin excision was needed. Wound was thoroughly irrigated. Adequate hemostasis was assured. Additional local anesthetic was injected into surrounding tissues. Five clips were placed to isiah the cavity. space was approximated with 2-0 Vicryl. The dermis was closed with 3-0 Vicryl and skin was closed with 4-0 Monocryl. Surgical glue was placed over the incision. Sponge and instrument counts were done and were correct. Patient emerged from the anesthesia without any problems. Fluffs were placed over the operative site and patients chest was wrapped snuggly in the EUGENIO wrap over her tshirt to avoid skin irritation from EUGENIO wrap. Patient tolerated procedure well and was taken to recovery unit in stable condition. CARYN JOHNSTON DO Nov 26, 2020 22:57
== END 2020-11-23 19:10 | disposition home or self-care (01) ==
LOC: M SDC 08:27
PROVIDERS: ATTEND Surgery
DX: D05.12 Intraductal carcinoma in situ of left breast (principal); E78.5 Hyperlipidemia, unspecified; K21.9 Gastro-esophageal reflux disease without esophagitis; R53.83 Other fatigue; Z98.890 Other specified postprocedural states; Z90.49 Acquired absence of other specified parts of digestive tract; M19.90 Unspecified osteoarthritis, unspecified site; R51.9 Headache, unspecified; E66.9 Obesity, unspecified; Z68.41 Body mass index [BMI] 40.0-44.9, adult; Z88.0 Allergy status to penicillin; Z88.5 Allergy status to narcotic agent
CPT/HCPCS: 19125; 36415; 38525; 76942; 78195; 86850; 86900; 86901; 88307; A9541; J0131; J1100; J1170; J1644; J2250; J2405; J2765; J3010

== ENCOUNTER → 2020-12-19 | Outpatient (CLI) | payer OTHER ==
[~2020-12-19] MED LIST changes: +CVS1CHW13 PO; +ROXI1TAB2 PO; +TAMO20TA8 PO
--- NOTE | 2020-12-19 10:51 | RADONC.CN ---
Radiation Oncology Hx/Consult Radiation Oncology Consult Date of Service: Dec 19, 2020 Pt Identifier Amberly De Souza is a 55 year old female with screening mammogram detected left breast cancer pT2N1a(sn)M0 ER/AR+ HER2- grade 2. She is s/p lumpectomy and SLNB with Dr. Esquivel on 11/23/20. She is seen for consideration of adjuvant RT. Diagnosis/Treatment History Oncologic History 09/07/20 Mammogram with left breast upper outer quadrant abnormality 09/22/20 US with 1.7 cm lesion in the left breast @ 2:00 10/18/20 Biopsy IDC grade 2 ER/AR+ HER2- 11/03/20 MRI without additional lesions 11/23/20 Lumpectomy and SLNB ([facility]) pT2N1a(sn)M0 margins negative 1/2 SLN+ Breast history OCP x 1 year 1st @ 26 Menses @ 13 Pre-menopausal No HRT No IVF Interval History Reports that some dermabond came off the periareolar incision yesterday revealing a small red area. She has some numbness in the left underarm and arm. No pain complaints. She was unable to tolerate breast MRI well due to the discomfort of the position. She had cholecystectomy a few days before her lumpectomy. She has some chronic fatigue, tends to stay up late and awake late. Has been trying to get better quality sleep recently. Has some life stressors, family and illness related, working through these with a therapist. Past Medical History: HPL Past Surgical History: Cholecystectomy Tonsillectomy C section Family History: Mother lung cancer Paternal grandfather brain cancer Social History: Never smoker Never drinker Allergies / Meds Allergies: Coded Allergies: Penicillins (Verified Allergy, Intermediate, rash, 11/17/20) codeine (Verified Allergy, Intermediate, rash, 11/17/20) morphine (Verified Allergy, Intermediate, rash, 11/17/20) Home Meds Active Scripts Tamoxifen Citrate (Tamoxifen Citrate) 20 Mg Tablet, 1 TAB PO DAILY, #30 TAB 2 Refills Prov:RADHA LIMON MD FACP 12/14/20 Reported Medications Inulin (Fiber Gummies) 2 Gm Tab.chew, 2 TAB PO DAILY for 30 Days, #60 TAB 12/14/20 Multivitamins (Thera M Plus Tablet) 1 Each Tablet, 1 TAB PO QAM for 30 Days, #30 TAB 10/18/20 Calcium Carbonate (Tums) 500 Mg Chw, 500 MG PO PRN, CHW 10/16/16 Discontinued Scripts Oxycodone HCl (Roxicodone) 5 Mg Tablet, 5 MG PO Q6HP PRN for pain MDD 4 Tablet(s) for 3 Days, #10 TAB Prov:CARYN ESQUIVEL DO 11/23/20 Review of Systems Constitutional: Reports: Fatigue; Denies: Weight Loss Eyes: Denies: Pain HEENT: Denies: Head Aches Skin: Reports: Rash (Dermatographism) Pulmonary: Reports: Pleuritic Chest Pain (Costochrondritis); Denies: Dyspnea Cardiovascular: Reports: Palpitations (Occasional ) Breast: Reports: Nipple Discharge (Reports right breast brown dischage intermittent not painful) Neurological: Reports: Numbness; Denies: Weakness Psych: Reports: Mood Normal Vital Signs Ht 65" Wt 232 lbs BMI 37 P 94 RR 18 BP 132/87 O2 98% Pain 0 Fatigue 1 General Exam: Alert, Cooperative, No Acute Distress Eye Exam: PERRLA, EOMI Neck Exam: Supple Chest Exam: Clear to auscultation Heart Exam: Rate Normal Breast Exam: Symmetric Bilaterally (Ptosis), Lumps or Masses (Palpable surgical site in the left lateral breast), Skin Changes (Small 0.3 cm red area medial left periareolar incision, no drainage or tenderness or surrounding erythema) Abdomen Exam: Soft Extremity Exam: Negative: Edema Skin Exam: Nl turgor and temperature Neuro Exam: Normal Gait, Normal Speech, Cranial Nerves 3-12 NL Psych Exam: Mental status NL Diagnostic and Laboratory Diagnostic Review Radiologic images, relevant labs and pathology reports were personally reviewed and discussed with Ms. De Souza. Assessment and Plan Impression Ms. De Souza is a 55 year old female with a history of screening mammogram detected left breast cancer pT2N1a(sn)M0 ER/AR+ HER2- grade 2. She is s/p lumpectomy and SLNB with Dr. Esquivel on 11/23/20. She is seen for consideration of adjuvant RT. Stage Left upper outer breast cancer pT2N1a(sn)M0 ER/AR+ HER2- grade 2 stage IB Performance Status ECOG 0 Plan We had an extensive discussion with Ms. De Souza regarding the diagnosis at hand and available therapeutic options. She is healing well. There is no evidence of infection of the left breast mp- areolar incision. She has follow up with Dr. Esquivel on 12/25/20. Regarding her cancer she meets ACOSOG Z0011 criteria for WBI+boost as opposed to including RNI. I offered her 40 Gy in 15 fractions to the left whole breast + 10 Gy in 5 fraction tumor bed boost. We will use DIBH technique to spare heart and lung dose given her young age, and poor tolerance of prone positioning for MRI. She agreed. We discussed the logistics of receiving radiation therapy in detail including the need for a 1-time planning session. This can occur after her post-operative visit with Dr. Esquivel next week. We reviewed the side effects of treatment including fatigue, skin reaction, and fibrosis. After discussing the risks, benefits and alternatives to radiation therapy, Ms. De Souza was amenable to pursuing radiotherapy. All questions were answered to the patient's satisfaction. We instructed the patient that if there were any questions,concerns or changes in clinical status in the interim to contact us. Recommendations Left whole breast RT + boost as described above with DIBH Simulation in the coming week Billing Statement Total time of [49] minutes was spent preparing for the visit [3], obtaining HPI [10], examining the patient [5], reviewing diagnostic tests [5], discussing management options [16], coordinating care [2], and writing this note [8]. GABRIELA FLEMING MD Dec 19, 2020 10:51
== END ==
LOC: M ONCR 08:56
PROVIDERS: ATTEND General Practice
DX: C50.412 Malignant neoplasm of upper-outer quadrant of left female breast (principal); Z79.891 Long term (current) use of opiate analgesic; Z88.0 Allergy status to penicillin; Z88.5 Allergy status to narcotic agent

== ENCOUNTER 2021-02-08 09:37 | Outpatient (RCR) | payer OTHER | END 2021-02-09 | LOC: M ONCR 09:37 | PROVIDERS: ATTEND General Practice | DX: C50.412 Malignant neoplasm of upper-outer quadrant of left female breast (principal); N64.59 Other signs and symptoms in breast ==

== ENCOUNTER 2021-03-05 09:32 | Outpatient (RCR) | payer OTHER | END 2021-03-12 | LOC: M ONCR 09:32 | PROVIDERS: ATTEND General Practice | DX: C50.412 Malignant neoplasm of upper-outer quadrant of left female breast (principal) ==

== ENCOUNTER → 2021-05-02 | Outpatient (CLI) | payer OTHER ==
[~2021-05-02] MED LIST changes: +GASTROGRAFIN SOLUTION 30ML (Q9963) As Ordered ONE; +ISOVUE-370 76% 100ML VIAL As Ordered ONE
== END ==
LOC: M RAD 11:49
PROVIDERS: ATTEND Family Medicine
DX: R10.812 Left upper quadrant abdominal tenderness (principal)

== ENCOUNTER → 2021-05-08 | Outpatient (REF) | payer OTHER ==
[~2021-05-08] MED LIST changes: +CIPR500T39; -GASTROGRAFIN SOLUTION 30ML (Q9963) As Ordered ONE; -ISOVUE-370 76% 100ML VIAL As Ordered ONE; +PHEN-501
[2021-05-08 13:06] LABS: APPEARANCE, URINE CLOUDY (CLEAR); BACTERIA, URINE AUTO 1+ (NEGATIVE); BILIRUBIN, URINE AUTO NEGATIVE (NEGATIVE); BLOOD, URINE BLOOD 3+ (NEGATIVE); COLOR, URINE YELLOW (YELLOW); GLUCOSE, URINE (UA) AUTO NEGATIVE (NEGATIVE); KETONE, URINE AUTO NEGATIVE (NEGATIVE); LEUKOCYTE ESTERASE, URINE AUTO 3+ (NEGATIVE); NITRITE, URINE AUTO NEGATIVE (NEGATIVE); PROTEIN, URINE AUTO 2+ mg/dL (NEGATIVE); RBC, URINE AUTO TNTC /HPF (0-3); RENAL EPITHELIAL CELLS 1 /HPF; SPECIFIC GRAVITY URINE AUTO 1.008 (1.002-1.035); SQUAMOUS EPITHELIAL CELL UR AU 3 /HPF (0-6); UROBILINOGEN, URINE AUTO 0.2 mg/dL (0.0-2.0); WBC, URINE AUTO TNTC /HPF (0-3)
== END ==
LOC: M LAB REF 12:35
PROVIDERS: ATTEND Physician Assistant Medical
DX: R30.0 Dysuria (principal)

== ENCOUNTER 2021-05-09 12:11 | Emergency (ER) | payer OTHER ==
[~2021-05-09] VITALS: Ht 165.1 cm; Wt 108.8 kg
[2021-05-09 12:11] VITALS: BP 150/72
[~2021-05-09 12:11] MED LIST changes: -CIPR500T39; -PHEN-501
[2021-05-09] MEDS ORDERED: CIPR500T39 (12:34)
[2021-05-09] MEDS ORDERED: PHEN-501 (12:34)
[2021-05-09 13:59] LABS: BASO % 0.7 % (0.0-1.0); EOS # 0.1 10^3/uL (0.0-0.5); HEMATOCRIT 43.5 % (36.0-47.0); HEMOGLOBIN 14.2 g/dl (12.0-15.5); LYMPH # 0.9 10^3/uL (1.5-5.0); LYMPH % 19.8 % (24.0-44.0); MEAN CORPUSCULAR HEMOGLOBIN 27.3 pg (27.0-33.0); MEAN CORPUSCULAR HGB CONC 32.6 g/dl (32.0-36.5); MEAN CORPUSCULAR VOLUME 83.7 fl (80.0-96.0); MONO # 0.4 10^3/uL (0.0-0.8); MONO % 8.4 % (2.0-8.0); NEUTROPHILS % 68.6 % (36.0-66.0); PLATELET COUNT, AUTOMATED 277 10^3/uL (150-450); WHITE BLOOD COUNT 4.4 10^3/uL (4.0-10.0)
[2021-05-09 14:31] LABS: ALBUMIN 3.1 GM/DL (3.2-5.2); ALT/SGPT 36 U/L (12-78); BILIRUBIN,DIRECT 0.1 MG/DL (0.0-0.2); BILIRUBIN,TOTAL 0.6 MG/DL (0.2-1.0); LIPASE 100 U/L (73-393); TOTAL PROTEIN 6.8 GM/DL (6.4-8.2)
[2021-05-09 15:17] LABS: BLOOD UREA NITROGEN 15 MG/DL (7-18); CALCIUM LEVEL 8.7 MG/DL (8.5-10.1); CARBON DIOXIDE LEVEL 29 MEQ/L (21-32); CHLORIDE LEVEL 107 MEQ/L (98-107); CREATININE FOR GFR 0.93 MG/DL (0.55-1.30); GLOMERULAR FILTRATION RATE > 60.0 (>51); GLUCOSE, FASTING 91 MG/DL (70-100); POTASSIUM SERUM 4.5 MEQ/L (3.5-5.1); SODIUM LEVEL 140 MEQ/L (136-145)
== END 2021-05-09 17:40 | disposition home or self-care (01) ==
LOC: M ED 12:11
DX: R10.9 Unspecified abdominal pain (principal); Z88.0 Allergy status to penicillin; Z88.6 Allergy status to analgesic agent

== ENCOUNTER 2021-07-04 11:48 | Outpatient (RCR) | payer OTHER ==
[~2021-07-04 11:48] MED LIST changes: +CIPR500T39; +PHEN-501
== END 2021-07-10 ==
LOC: M PT 11:48
PROVIDERS: ATTEND Family Medicine
DX: I89.0 Lymphedema, not elsewhere classified (principal)

== ENCOUNTER 2021-07-22 16:20 | Emergency (ER) | payer OTHER ==
[~2021-07-22] VITALS: Ht 165.1 cm; Wt 109.1 kg
[2021-07-22 17:31] LABS: BASO % 0.4 % (0.0-1.0); EOS # 0.1 10^3/uL (0.0-0.5); EOS % 2.3 % (0.0-3.0); HEMATOCRIT 39.8 % (36.0-47.0); HEMOGLOBIN 13.2 g/dl (12.0-15.5); LYMPH # 1.1 10^3/uL (1.5-5.0); LYMPH % 21.8 % (24.0-44.0); MEAN CORPUSCULAR HEMOGLOBIN 28.5 pg (27.0-33.0); MEAN CORPUSCULAR HGB CONC 33.2 g/dl (32.0-36.5); MONO # 0.4 10^3/uL (0.0-0.8); MONO % 8.6 % (2.0-8.0); NEUTROPHILS # 3.4 10^3/uL (1.5-8.5); NEUTROPHILS % 66.5 % (36.0-66.0); PLATELET COUNT, AUTOMATED 260 10^3/uL (150-450); RED BLOOD COUNT 4.63 10^6/uL (4.00-5.40); WHITE BLOOD COUNT 5.1 10^3/uL (4.0-10.0)
[2021-07-22 17:57] LABS: ALT/SGPT 21 U/L (12-78); BILIRUBIN,DIRECT 0.1 MG/DL (0.0-0.2); BILIRUBIN,TOTAL 0.2 MG/DL (0.2-1.0); BLOOD UREA NITROGEN 12 MG/DL (7-18); CALCIUM LEVEL 8.5 MG/DL (8.5-10.1); CARBON DIOXIDE LEVEL 29 MEQ/L (21-32); CHLORIDE LEVEL 106 MEQ/L (98-107); CREATININE FOR GFR 0.75 MG/DL (0.55-1.30); GLOMERULAR FILTRATION RATE > 60.0 (>51); GLUCOSE, FASTING 95 MG/DL (70-100); LIPASE 136 U/L (73-393); POTASSIUM SERUM 3.8 MEQ/L (3.5-5.1); SODIUM LEVEL 139 MEQ/L (136-145); TOTAL PROTEIN 7.1 GM/DL (6.4-8.2)
[2021-07-22 18:24] LABS: APPEARANCE, URINE CLEAR (CLEAR); BACTERIA, URINE AUTO NEGATIVE (NEGATIVE); BILIRUBIN, URINE AUTO NEGATIVE (NEGATIVE); BLOOD, URINE BLOOD 2+ (NEGATIVE); COLOR, URINE YELLOW (YELLOW); GLUCOSE, URINE (UA) AUTO NEGATIVE (NEGATIVE); KETONE, URINE AUTO NEGATIVE (NEGATIVE); LEUKOCYTE ESTERASE, URINE AUTO NEGATIVE (NEGATIVE); MUCUS, URINE SMALL (NEGATIVE); NITRITE, URINE AUTO NEGATIVE (NEGATIVE); PROTEIN, URINE AUTO NEGATIVE (NEGATIVE); RBC, URINE AUTO 0 /HPF (0-3); SPECIFIC GRAVITY URINE AUTO 1.011 (1.002-1.035); SQUAMOUS EPITHELIAL CELL UR AU 1 /HPF (0-6); UROBILINOGEN, URINE AUTO 0.2 mg/dL (0.0-2.0); WBC, URINE AUTO 1 /HPF (0-3)
[2021-07-22 21:46] VITALS: BP 141/93
== END 2021-07-22 21:48 | disposition home or self-care (01) ==
LOC: M ED 16:20
DX: R10.12 Left upper quadrant pain (principal); Z88.0 Allergy status to penicillin; Z88.5 Allergy status to narcotic agent

== ENCOUNTER → 2021-08-22 | Outpatient (CLI) | payer OTHER | LOC: M ONCR 13:48 | PROVIDERS: ATTEND General Practice | DX: C50.412 Malignant neoplasm of upper-outer quadrant of left female breast (principal); R22.2 Localized swelling, mass and lump, trunk; Z79.810 Long term (current) use of selective estrogen receptor modulators (SERMs); Z79.899 Other long term (current) drug therapy; Z88.0 Allergy status to penicillin; Z88.5 Allergy status to narcotic agent; Z92.3 Personal history of irradiation ==

== ENCOUNTER → 2021-09-24 | Outpatient (CLI) | payer OTHER | LOC: M WHC 09:54 | PROVIDERS: ATTEND Surgery | DX: C50.412 Malignant neoplasm of upper-outer quadrant of left female breast (principal) | CPT/HCPCS: 77066; G0279 ==

== ENCOUNTER → 2021-12-10 | Outpatient (CLI) | payer OTHER | LOC: M WHC 09:36 | PROVIDERS: ATTEND Internal Medicine Medical Oncology | DX: N93.9 Abnormal uterine and vaginal bleeding, unspecified (principal); N83.201 Unspecified ovarian cyst, right side ==

== ENCOUNTER → 2022-01-09 | Outpatient (RCR) | payer OTHER | LOC: M PT 10:32 | PROVIDERS: ATTEND Family Medicine | DX: I89.0 Lymphedema, not elsewhere classified (principal) ==

== ENCOUNTER → 2022-02-21 | Outpatient (CLI) | payer OTHER | LOC: M ONCR 10:51 | PROVIDERS: ATTEND Radiology Radiation Oncology | DX: Z08 Encounter for follow-up examination after completed treatment for malignant neoplasm (principal); Z85.3 Personal history of malignant neoplasm of breast; Z88.0 Allergy status to penicillin; Z88.5 Allergy status to narcotic agent; Z92.3 Personal history of irradiation ==

== ENCOUNTER → 2022-02-26 | Outpatient (CLI) | payer OTHER ==
[2022-02-26 15:19] LABS: HCG, SERUM QUANTITATIVE < 2.6 MIU/ML (<4.2)
[2022-02-26 15:22] LABS: FOLLICLE STIMULATING HORMONE 20.1 mIU/ML; LUTEINIZING HORMONE 24.6 mIU/ML
== END ==
LOC: M LAB 14:04
PROVIDERS: ATTEND Obstetrics & Gynecology
DX: R77.2 Abnormality of alphafetoprotein (principal); R97.1 Elevated cancer antigen 125 [CA 125]

== ENCOUNTER 2022-03-20 07:57 | Day surgery (SDC) | payer OTHER ==
[~2022-03-20] VITALS: Ht 165.1 cm; Wt 113.4 kg
[~2022-03-20 07:57] MED LIST changes: +NS 1,000 ML IV ONE
[2022-03-20] MEDS ORDERED: LIDOCAINE 2% 100MG/5ML SDV (FOR ANES.) As Ordered ONE (08:38)
[2022-03-20] MEDS ORDERED: propofoL 500 MG/50 ML VIAL As Ordered ONE (08:39)
[2022-03-20] MEDS ORDERED: fentaNYL 100 MCG/2 ML INJECTION As Ordered ONE (08:39)
[2022-03-20] MEDS ORDERED: propofoL 200 MG/20 ML VIAL As Ordered ONE (10:02)
[2022-03-20 10:37] VITALS: BP 139/74
== END 2022-03-20 10:40 | disposition home or self-care (01) ==
LOC: M OPP 07:57
PROVIDERS: ATTEND Internal Medicine Gastroenterology
DX: Z12.11 Encounter for screening for malignant neoplasm of colon (principal); Z80.0 Family history of malignant neoplasm of digestive organs; D12.2 Benign neoplasm of ascending colon; K64.0 First degree hemorrhoids; K57.30 Diverticulosis of large intestine without perforation or abscess without bleeding; K31.89 Other diseases of stomach and duodenum; K22.70 Barrett's esophagus without dysplasia; Z79.1 Long term (current) use of non-steroidal anti-inflammatories (NSAID); Z79.810 Long term (current) use of selective estrogen receptor modulators (SERMs); Z88.0 Allergy status to penicillin; Z88.5 Allergy status to narcotic agent; Z85.3 Personal history of malignant neoplasm of breast; Z90.49 Acquired absence of other specified parts of digestive tract
CPT/HCPCS: 43239; 45385; 88305; J3010

== ENCOUNTER → 2022-04-19 | Outpatient (CLI) | payer OTHER ==
[~2022-04-19] MED LIST changes: +ACET325C5 PO; -NS 1,000 ML IV ONE; +OMEP-173 PO
== END ==
LOC: M EKG 12:53
PROVIDERS: ATTEND Internal Medicine
DX: E78.00 Pure hypercholesterolemia, unspecified (principal)

== ENCOUNTER 2022-04-25 06:02 | Day surgery (SDC) | payer OTHER ==
[~2022-04-25] VITALS: Ht 165.1 cm; Wt 114.7 kg
[~2022-04-25 06:02] MED LIST changes: +cefoTEtan DISODIUM 2 GM in D5W MINI-BAG PLUS 50 ML IV ONE
[2022-04-25] MEDS ORDERED: LR 1,000 ML IV SCH ×2 (06:25→11:30)
[2022-04-25 06:52] LABS: HEMATOCRIT 38.7 % (36.0-47.0); HEMOGLOBIN 12.8 g/dl (12.0-15.5)
[2022-04-25] MEDS ORDERED: ROCURONIUM BROMIDE 50MG/5ML VIAL As Ordered ONE ×2 (07:17→09:51)
[2022-04-25] MEDS ORDERED: LIDOCAINE 2% 100MG/5ML SDV (FOR ANES.) As Ordered ONE (07:17)
[2022-04-25] MEDS ORDERED: propofoL 200 MG/20 ML VIAL As Ordered ONE (07:17)
[2022-04-25] MEDS ORDERED: ACETAMINOPHEN 1000MG 100ML IV BAG As Ordered ONE (07:17)
[2022-04-25] MEDS ORDERED: SUGAMMADEX SODIUM 500 MG/5 ML VIAL (BRIDION) As Ordered ONE (07:17)
[2022-04-25] MEDS ORDERED: KETOROLAC 60MG 2ML VIAL As Ordered ONE (07:17)
[2022-04-25] MEDS ORDERED: ONDANSETRON 4MG 2ML VIAL As Ordered ONE (07:17)
[2022-04-25] MEDS ORDERED: METOCLOPRAMIDE INJ 10MG/2ML VIAL As Ordered ONE (07:17)
[2022-04-25] MEDS ORDERED: MIDAZOLAM INJ 2MG/2ML VIAL As Ordered ONE (07:18)
[2022-04-25] MEDS ORDERED: fentaNYL 100 MCG/2 ML INJECTION As Ordered ONE (07:18)
[2022-04-25 07:20] LABS: ALBUMIN 3.2 G/DL (3.2-5.2); ALKALINE PHOSPHATASE 55 U/L (46-116); ALT/SGPT 44 U/L (7.0-40); AST/SGOT 35 U/L (<34); BILIRUBIN,TOTAL 0.6 MG/DL (0.3-1.2); BLOOD UREA NITROGEN 11 MG/DL (9-23); CALCIUM LEVEL 8.4 MG/DL (8.5-10.1); CARBON DIOXIDE LEVEL 27 MMOL/L (20-31); CHLORIDE LEVEL 106 MMOL/L (98-107); CREATININE FOR GFR 0.71 MG/DL (0.55-1.30); GLOMERULAR FILTRATION RATE > 60.0 (>51); GLUCOSE, FASTING 99 MG/DL (60-100); POTASSIUM SERUM 3.7 MMOL/L (3.5-5.1); SODIUM LEVEL 140 MMOL/L (136-145); TOTAL PROTEIN 6.1 G/DL (5.7-8.2)
[2022-04-25] MEDS: BUPIVACAINE HCL 0.25% 30ML VIAL As Ordered ONE ×2 (08:41→09:01)
[2022-04-25] MEDS ORDERED: HYDROmorphone HCL 2MG/ML 1ML VIAL As Ordered ONE (08:44)
[2022-04-25] MEDS ORDERED: fentaNYL 100 MCG/2 ML INJECTION IV PRN (11:30)
[2022-04-25] MEDS ORDERED: HYDROMORPHONE HCL 0.5 MG/ 0.5 ML SYRINGE IV PRN (11:30)
[2022-04-25] MEDS ORDERED: oxyCODONE 5MG TAB PO PRN ×3 (11:30→12:00)
[2022-04-25] MEDS ORDERED: ONDANSETRON 4MG 2ML VIAL IV PRN (11:30)
[2022-04-25] MEDS ORDERED: METOCLOPRAMIDE INJ 10MG/2ML VIAL IV PRN (11:30)
[2022-04-25 14:50] VITALS: BP 135/84
== END 2022-04-25 15:00 | disposition home or self-care (01) ==
LOC: M SDC 06:02
PROVIDERS: ATTEND Obstetrics & Gynecology
DX: N88.8 Other specified noninflammatory disorders of cervix uteri (principal); N84.0 Polyp of corpus uteri; N80.00 Endometriosis of the uterus, unspecified; Z85.3 Personal history of malignant neoplasm of breast; Z92.3 Personal history of irradiation; E78.00 Pure hypercholesterolemia, unspecified; K21.9 Gastro-esophageal reflux disease without esophagitis; K22.70 Barrett's esophagus without dysplasia; K57.92 Diverticulitis of intestine, part unspecified, without perforation or abscess without bleeding; M19.90 Unspecified osteoarthritis, unspecified site; M54.50 Low back pain, unspecified; Z88.5 Allergy status to narcotic agent; Z88.0 Allergy status to penicillin; Z79.899 Other long term (current) drug therapy
CPT/HCPCS: 36415; 58552; 80053; 81025; 85014; 85018; 86850; 86900; 86901; 88307; J0131; J1100; J1170; J1885; J2250; J2405; J2765; J3010; S0020; S0074

== ENCOUNTER 2022-05-18 23:23 | Emergency (ER) | payer OTHER ==
[~2022-05-18] VITALS: Ht 165.1 cm; Wt 116.5 kg
[~2022-05-18 23:23] MED LIST changes: -cefoTEtan DISODIUM 2 GM in D5W MINI-BAG PLUS 50 ML IV ONE
[2022-05-19 00:37] LABS: BASO % 0.6 % (0.0-1.0); EOS # 0.5 10^3/uL (0.0-0.5); EOS % 7.7 % (0.0-3.0); HEMATOCRIT 35.3 % (36.0-47.0); HEMOGLOBIN 11.7 g/dl (12.0-15.5); LYMPH # 1.4 10^3/uL (1.5-5.0); LYMPH % 22.3 % (24.0-44.0); MEAN CORPUSCULAR HEMOGLOBIN 27.9 pg (27.0-33.0); MEAN CORPUSCULAR HGB CONC 33.1 g/dl (32.0-36.5); MEAN CORPUSCULAR VOLUME 84.2 fl (80.0-96.0); MONO # 0.5 10^3/uL (0.0-0.8); MONO % 7.2 % (2.0-8.0); NEUTROPHILS # 3.8 10^3/uL (1.5-8.5); NEUTROPHILS % 61.6 % (36.0-66.0); PLATELET COUNT, AUTOMATED 306 10^3/uL (150-450); RED BLOOD COUNT 4.19 10^6/uL (4.00-5.40); WHITE BLOOD COUNT 6.2 10^3/uL (4.0-10.0)
[2022-05-19 01:05] LABS: BLOOD UREA NITROGEN 14 MG/DL (9-23); CALCIUM LEVEL 8.7 MG/DL (8.5-10.1); CARBON DIOXIDE LEVEL 27 MMOL/L (20-31); CHLORIDE LEVEL 105 MMOL/L (98-107); CK-MB VALUE MASS < 1.0 NG/ML (<3.6); CPK CREATINE PHOSPHOKINASE 75 U/L (34-145); CREATININE FOR GFR 0.75 MG/DL (0.55-1.30); GLOMERULAR FILTRATION RATE > 60.0 (>51); GLUCOSE, FASTING 97 MG/DL (60-100); MB/CK RELATIVE INDEX 1.33 (< OR =4); POTASSIUM SERUM 3.8 MMOL/L (3.5-5.1); SODIUM LEVEL 138 MMOL/L (136-145)
[2022-05-19 03:15] VITALS: BP 142/83
== END 2022-05-19 04:08 | disposition home or self-care (01) ==
LOC: M ED 23:23
DX: R07.89 Other chest pain (principal); G90.09 Other idiopathic peripheral autonomic neuropathy; C50.919 Malignant neoplasm of unspecified site of unspecified female breast; Z88.0 Allergy status to penicillin; Z88.5 Allergy status to narcotic agent; Z79.899 Other long term (current) drug therapy

== ENCOUNTER → 2022-09-30 | Outpatient (CLI) | payer OTHER ==
[~2022-09-30] MED LIST changes: +TAMO20TA8
== END ==
LOC: M WHC 13:17
PROVIDERS: ATTEND Nurse Practitioner Women's Health
DX: C50.919 Malignant neoplasm of unspecified site of unspecified female breast (principal)

== ENCOUNTER 2022-10-10 14:09 | Emergency (ER) | payer OTHER ==
[~2022-10-10] VITALS: Ht 165.1 cm; Wt 117.9 kg
[2022-10-10] MEDS ORDERED: AZIT-12 (14:38)
[2022-10-10] MEDS ORDERED: FLUC150T9 (14:38)
[2022-10-10] MEDS ORDERED: PRED20TA (14:38)
[2022-10-10 15:56] LABS: BASO # 0.1 10^3/uL (0.0-0.2); BASO % 0.6 % (0.0-1.0); EOS # 0.1 10^3/uL (0.0-0.5); EOS % 1.6 % (0.0-3.0); HEMATOCRIT 39.5 % (36.0-47.0); HEMOGLOBIN 12.8 g/dl (12.0-15.5); LYMPH # 1.5 10^3/uL (1.5-5.0); LYMPH % 18.6 % (24.0-44.0); MEAN CORPUSCULAR HEMOGLOBIN 26.8 pg (27.0-33.0); MEAN CORPUSCULAR HGB CONC 32.4 g/dl (32.0-36.5); MEAN CORPUSCULAR VOLUME 82.8 fl (80.0-96.0); MONO # 0.5 10^3/uL (0.0-0.8); MONO % 6.4 % (2.0-8.0); NEUTROPHILS # 5.8 10^3/uL (1.5-8.5); NEUTROPHILS % 71.1 % (36.0-66.0); PLATELET COUNT, AUTOMATED 336 10^3/uL (150-450); RED BLOOD COUNT 4.77 10^6/uL (4.00-5.40); WHITE BLOOD COUNT 8.2 10^3/uL (4.0-10.0)
[2022-10-10 16:23] LABS: ALKALINE PHOSPHATASE 48 U/L (46-116); ALT/SGPT 33 U/L (7.0-40); AST/SGOT 24 U/L (<34); BILIRUBIN,DIRECT 0.1 MG/DL (<0.4); BILIRUBIN,TOTAL 0.4 MG/DL (0.3-1.2); BLOOD UREA NITROGEN 13 MG/DL (9-23); CALCIUM LEVEL 8.6 MG/DL (8.5-10.1); CARBON DIOXIDE LEVEL 30 MMOL/L (20-31); CHLORIDE LEVEL 105 MMOL/L (98-107); CREATININE FOR GFR 0.88 MG/DL (0.55-1.30); GLOMERULAR FILTRATION RATE > 60.0 (>51); GLUCOSE, FASTING 97 MG/DL (60-100); POTASSIUM SERUM 4.4 MMOL/L (3.5-5.1); SODIUM LEVEL 142 MMOL/L (136-145); TOTAL PROTEIN 6.2 G/DL (5.7-8.2)
[2022-10-10 16:25] LABS: THYROXINE (T4) 11.2 UG/DL (4.5-10.9)
[2022-10-10 16:26] LABS: THYROID STIMULATING HORMONE 2.232 uIU/ML (0.55-4.78)
[2022-10-10] MEDS ORDERED: IPRATROPIUM 0.5MG/ALBUTEROL 2.5MG INH SOL UD 3ML (DUONEB) NEB ONE (17:25)
[2022-10-10] MEDS ORDERED: predniSONE 20 MG TAB PO ONE (17:25)
[2022-10-10] MEDS ORDERED: PRED20TA PO (19:06)
[2022-10-10] MEDS ORDERED: VENTAER INH (19:06)
[2022-10-10] MEDS ORDERED: CVS1CAP2 PO (19:09)
[2022-10-10 19:23] VITALS: BP 143/88; TEMP 98.5; O2SAT 99
== END 2022-10-10 19:26 | disposition home or self-care (01) ==
LOC: M ED 14:09
DX: J20.9 Acute bronchitis, unspecified (principal); R51.9 Headache, unspecified; K21.9 Gastro-esophageal reflux disease without esophagitis; K57.92 Diverticulitis of intestine, part unspecified, without perforation or abscess without bleeding; Z85.3 Personal history of malignant neoplasm of breast; F41.9 Anxiety disorder, unspecified; Z88.0 Allergy status to penicillin; Z88.5 Allergy status to narcotic agent; Z79.899 Other long term (current) drug therapy; Z79.52 Long term (current) use of systemic steroids
CPT/HCPCS: 36415; 71046; 80048; 80076; 83605; 83880; 84436; 84443; 85025; 87040; 87486; 87581; 87633; 87798; 93005; 94640; 99284; J7512

== ENCOUNTER → 2023-01-09 | Outpatient (RCR) | payer OTHER ==
[~2023-01-09] MED LIST changes: +AZIT-12; +CVS1CAP2 PO; +FLUC150T9; +PRED20TA; +PRED20TA PO; +VENTAER INH
== END ==
LOC: M PT 10:35
PROVIDERS: ATTEND Family Medicine
DX: I89.0 Lymphedema, not elsewhere classified (principal)

== ENCOUNTER → 2023-02-21 | Outpatient (CLI) | payer OTHER | LOC: M ONCR 10:43 | PROVIDERS: ATTEND General Practice | DX: Z08 Encounter for follow-up examination after completed treatment for malignant neoplasm (principal); Z85.3 Personal history of malignant neoplasm of breast; Z71.2 Person consulting for explanation of examination or test findings; Z79.810 Long term (current) use of selective estrogen receptor modulators (SERMs); Z79.899 Other long term (current) drug therapy; Z88.0 Allergy status to penicillin; Z88.1 Allergy status to other antibiotic agents; Z88.5 Allergy status to narcotic agent; Z92.3 Personal history of irradiation ==

== ENCOUNTER 2023-03-09 03:24 | Emergency (ER) | payer OTHER ==
[~2023-03-09] VITALS: Ht 165.1 cm; Wt 136.0 kg
[2023-03-09 06:36] VITALS: BP 154/82; TEMP 97; O2SAT 98
== END 2023-03-09 07:27 | disposition home or self-care (01) ==
LOC: M ED 03:24
DX: I83.93 Asymptomatic varicose veins of bilateral lower extremities (principal); S80.11XA Contusion of right lower leg, initial encounter; Y99.8 Other external cause status; Y92.9 Unspecified place or not applicable; Y93.9 Activity, unspecified; Z79.899 Other long term (current) drug therapy; Z88.0 Allergy status to penicillin; Z88.5 Allergy status to narcotic agent

== ENCOUNTER → 2023-07-22 | Outpatient (REF) | payer OTHER ==
[2023-07-22 16:37] LABS: APPEARANCE, URINE CLOUDY (CLEAR); BACTERIA, URINE AUTO 1+ (NEGATIVE); BILIRUBIN, URINE AUTO NEGATIVE (NEGATIVE); BLOOD, URINE BLOOD 2+ (NEGATIVE); COLOR, URINE YELLOW (YELLOW); GLUCOSE, URINE (UA) AUTO NEGATIVE (NEGATIVE); KETONE, URINE AUTO NEGATIVE (NEGATIVE); LEUKOCYTE ESTERASE, URINE AUTO 3+ (NEGATIVE); MUCUS, URINE SMALL (NEGATIVE); NITRITE, URINE AUTO NEGATIVE (NEGATIVE); PROTEIN, URINE AUTO 1+ mg/dL (NEGATIVE); RBC, URINE AUTO 31 /HPF (0-3); SPECIFIC GRAVITY URINE AUTO 1.018 (1.002-1.035); SQUAMOUS EPITHELIAL CELL UR AU 2 /HPF (0-6); UROBILINOGEN, URINE AUTO 0.2 mg/dL (0.0-2.0); WBC, URINE AUTO 142 /HPF (0-3)
== END ==
LOC: M LAB REF 16:15
PROVIDERS: ATTEND Physician Assistant Medical
DX: N39.0 Urinary tract infection, site not specified (principal)

== ENCOUNTER → 2023-10-02 | Outpatient (CLI) | payer OTHER | LOC: M WHC 08:47 | PROVIDERS: ATTEND Nurse Practitioner Women's Health | DX: C50.919 Malignant neoplasm of unspecified site of unspecified female breast (principal) ==

== ENCOUNTER 2023-10-25 21:20 | Emergency (ER) | payer OTHER ==
[~2023-10-25] VITALS: Ht 165.1 cm; Wt 112.2 kg
[2023-10-25 21:21] VITALS: TEMP 97.6
[2023-10-26] MEDS ORDERED: CEPH500C PO (03:01)
[2023-10-26] MEDS ORDERED: PRED20TA PO (03:01)
[2023-10-26] MEDS: CEPHALEXIN 500 MG CAP PO ONE (03:08)
[2023-10-26] MEDS: predniSONE 20 MG TAB PO ONE (03:11)
[2023-10-26 03:30] VITALS: BP 135/82; O2SAT 97
== END 2023-10-26 03:39 | disposition home or self-care (01) ==
LOC: M ED 21:20
DX: L03.114 Cellulitis of left upper limb (principal); W57.XXXA Bitten or stung by nonvenomous insect and other nonvenomous arthropods, initial encounter; K21.9 Gastro-esophageal reflux disease without esophagitis; Z88.0 Allergy status to penicillin; Z88.5 Allergy status to narcotic agent; Z79.2 Long term (current) use of antibiotics; Z79.52 Long term (current) use of systemic steroids
CPT/HCPCS: 99283; J7512

== ENCOUNTER → 2023-12-12 | Outpatient (REF) | payer OTHER ==
[~2023-12-12] MED LIST changes: +CEPH500C PO
== END ==
LOC: M LAB REF 20:57
PROVIDERS: ATTEND Physician Assistant
DX: J02.9 Acute pharyngitis, unspecified (principal)

== ENCOUNTER → 2024-02-24 | Outpatient (CLI) | payer OTHER | LOC: M ONCR 10:49 | PROVIDERS: ATTEND General Practice | DX: Z08 Encounter for follow-up examination after completed treatment for malignant neoplasm (principal); Z85.3 Personal history of malignant neoplasm of breast; Z98.890 Other specified postprocedural states; Z92.3 Personal history of irradiation; Z79.810 Long term (current) use of selective estrogen receptor modulators (SERMs); Z88.0 Allergy status to penicillin; Z88.1 Allergy status to other antibiotic agents; Z88.5 Allergy status to narcotic agent ==

== ENCOUNTER → 2024-04-22 | Outpatient (REF) | payer OTHER | LOC: M LAB REF 19:42 | PROVIDERS: ATTEND Student in an Organized Health Care Education/Training Program | DX: R30.0 Dysuria (principal) ==

== ENCOUNTER → 2024-10-04 | Outpatient (CLI) | payer OTHER ==
[~2024-10-04] MED LIST changes: +METO1TAB32; +SYNT125T
== END ==
LOC: M WHC 10:50
PROVIDERS: ATTEND Internal Medicine Medical Oncology
DX: Z12.31 Encounter for screening mammogram for malignant neoplasm of breast (principal)
CPT/HCPCS: 77066; G0279

== ENCOUNTER 2024-11-17 09:32 | Day surgery (SDC) | payer OTHER ==
[~2024-11-17] VITALS: Ht 165.1 cm; Wt 108.6 kg
[2024-11-17] MEDS ORDERED: LIDOCAINE 2% 100 MG/5 ML SDV (FOR ANES.) As Ordered ONE (11:17)
[2024-11-17 11:18] VITALS: TEMP 98.5
[2024-11-17 11:40] VITALS: BP 123/78; O2SAT 100
== END 2024-11-17 11:51 | disposition home or self-care (01) ==
LOC: M OPP 09:32
PROVIDERS: ATTEND Internal Medicine Gastroenterology
DX: K44.9 Diaphragmatic hernia without obstruction or gangrene (principal); K22.70 Barrett's esophagus without dysplasia; R12 Heartburn; Z86.0100 Personal history of colon polyps, unspecified; G47.30 Sleep apnea, unspecified; Z88.0 Allergy status to penicillin; Z88.5 Allergy status to narcotic agent; Z79.899 Other long term (current) drug therapy